=== PATIENT | female | born 1995 | race Caucasian/White ===

== ENCOUNTER 2022-11-15 09:43 | Outpatient (OUT) | payer BC, SELFPAY ==
[2022-11-15 10:35] LABS: Eosinophils Percent Auto 0.7 % (0.9-7.0); Hematocrit 34.8 % (36.0-48.0); Hemoglobin 11.5 g/dL (12.0-16.0); Lymphocytes Absolute Auto 1.7 10^3/uL (1.2-3.8); Lymphocytes Percent Auto 40.7 % (20.5-60.0); Mean Corpuscular Hemoglobin 30.1 pg (26.7-34.0); Mean Corpuscular Volume 91.1 fL (81.0-99.0); Mean Platelet Volume 10.9 fL (9.5-13.5); Monocytes Absolute Auto 0.4 10^3/uL (0.3-0.8); Neutrophils Absolute Auto 1.9 10^3/uL (1.4-6.5); Neutrophils Percent Auto 47.6 % (43.0-75.0); Platelet Count 279 10^3/uL (150-450); Red Blood Count 3.82 10^6/uL (4.20-5.40); Red Cell Distribution Width 12.2 % (11.0-15.0); White Blood Count 4.1 10^3/uL (4.0-11.0)
[2022-11-15 11:38] LABS: Estimated Average Glucose 91 mg/dL; Glycohemoglobin A1C 4.8 % (4.5-6.2)
[2022-11-15 14:49] LABS: Alanine Aminotransferase 39 U/L (14-59); Albumin Level 3.4 g/dL (3.4-5.0); Alkaline Phosphatase 56 U/L (46-116); Anion Gap 16.2; Aspartate Amino Transferase 87 U/L (15-37); BUN Creatinine Ratio 10.5; Bilirubin Total 0.7 mg/dL (0.2-1.0); Calcium 8.4 mg/dL (8.5-10.1); Carbon Dioxide 22.7 mmol/L (21.0-32.0); Chloride 106 mmol/L (98-107); Chol HDL Ratio 3.2; Cholesterol 172 mg/dL (<=200); Estimated GFR (African America >60 (>=60); Estimated GFR (Non-African Ame >60 (>=60); Globulin 3.5 g/dL; Glucose 65 mg/dL (74-106); HDL Cholesterol 53 mg/dL (40-60); LDL Cholesterol Calculated 107.6 mg/dL; Potassium 3.9 mmol/L (3.5-5.1); Sodium 141 mmol/L (136-145); Thyroid Stimulating Hormone 1.145 uIU/mL (0.358-3.740); Total Protein 6.9 g/dL (6.4-8.2); Triglycerides 57 mg/dL (<=150); VLDL CHOLESTEROL 11.4 mg/dL
== END 2022-11-15 09:44 | disposition home or self-care (01) ==
LOC: LAB 09:44
PROVIDERS: PCP Radiology Diagnostic Radiology; Visit Provider Obstetrics & Gynecology
DX: Z00.00 Encounter for general adult medical examination without abnormal findings (principal)
CPT/HCPCS: 36415; 80053; 80061; 83036; 84443; 85025

== ENCOUNTER 2022-11-28 07:29 | Outpatient (OUT) | payer BC, SELFPAY ==
--- NOTE | 2022-11-28 07:32 | VEIN_ITS ---
[address] [address] Patient Name: NATAN ORONA MRN: [id number] date: 1995 Sex: F Assigned Patient Location: Current Patient Location: [facility] Accession/Order Number: [id number] Exam Date: 11/28/2022 07:30 Report Date: 11/28/2022 08:18 At the request of: WILLEM MADDOX Procedure: VC INJ Sclerosing SOLMULT Vein EXAMINATION: VC INJ Sclerosing SOLMULT Vein HISTORY: Pain due to varicose veins of bilateral legs I83.813 COMPARISON: No relevant comparison available. TECHNIQUE: The risks and benefits of the procedure were explained at length to the patient and informed written consent was obtained. Johnie Cai was present and assisted. The procedure was performed under sterile technique. The patient's leg was wrapped with Coban and postprocedural verbal and written instructions provided. SCLEROSANT: 4 cc, 0.5% polidocanol VEIN(S) INJECTED: 26 veins in the left leg VISUALIZATION: Ultrasound was not used to visualize the sclerosant ANESTHESIA: Supercooled air COMPLICATIONS: None VEIN/VC INJ Sclerosing SOLMULT Vein IMPRESSION: Technically successful sclerotherapy as described Electronically authenticated by: WILLEM MADDOX Date: 11/28/2022 08:18
== END 2022-11-28 07:30 | disposition home or self-care (01) ==
PROVIDERS: PCP Radiology Diagnostic Radiology; Visit Provider Radiology Diagnostic Radiology
DX: I83.813 Varicose veins of bilateral lower extremities with pain (principal)
CPT/HCPCS: 36471

== ENCOUNTER 2023-02-21 08:52 | Outpatient (OUT) | payer BC, SELFPAY ==
--- NOTE | 2023-02-21 08:54 | VEIN_ITS ---
VEIN/VC INJ Sclerosing SOLMULT Vein IMPRESSION: Technically successful sclerotherapy as described Electronically authenticated by: WILLEM MADDOX Date: 02/21/2023 10:07
== END 2023-02-21 08:53 | disposition home or self-care (01) ==
LOC: VC 08:52
PROVIDERS: PCP Radiology Diagnostic Radiology; Visit Provider Radiology Diagnostic Radiology
DX: I83.813 Varicose veins of bilateral lower extremities with pain (principal)
CPT/HCPCS: 36471

== ENCOUNTER 2024-02-22 06:44 | Outpatient (OUT) | payer BC, SELFPAY ==
--- OUTSIDE RECORDS SUMMARY | 2024-02-22 06:46 | XMS_ITS | CCD ---
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 Role Phone Ez HERNANDEZ Primary Care Physician [phone] KIERRA, ELZBIETA Consulting Unavailable KIERRA, ELZBIETA Attending Unavailable KIERRA, ELZBIETA Admitting Unavailable REQUEST, NONE LISTED Primary Care Unavaila ble KIERRA, ELZBIETA Consulting Unavailable KIERRA, ELZBIETA Attending Unavailable KIERRA, ELZBIETA Admitting Unavailable REQUEST, NONE LISTED Primary Care Unavaila ble WEST, DR WILLEM Rivas Admitting Unavailable WEST, DR WILLEM Rivas Consulting Unavailable REQUEST, NONE LISTED Primary Care Unavaila ble WEST, DR WILLEM Rivas Attending Unavailable WEST, DR WILLEM Rivas Admitting Unavailable WEST, DR WILLEM Rivas Consulting Unavailable WEST, DR WILLEM Rivas Attending Unavailable REQUEST, NONE LISTED Primary Care Unavaila ble ZIEBER, DR JOVANY Herbert Consulting Unavailable WEST, DR WILLEM Rivas Admitting Unavailable WEST, DR WILLEM Rivas Consulting Unavailable WEST, DR WILLEM Rivas Attending Unavailable REQUEST, NONE LISTED Primary Care Unavaila ble ZIEBER, DR JOVANY Herbert Consulting Unavailable WEST, DR WILLEM Rivas Admitting Unavailable REQUEST, NONE LISTED Primary Care Unavaila ble WEST, DR WILLEM Rivas Attending Unavailable WEST, DR WILLEM Rivas Consulting Unavailable WEST, DR WILLEM Rivas Admitting Unavailable REQUEST, NONE LISTED Primary Care Unavaila ble WEST, DR WILLEM Rivas Consulting Unavailable WEST, DR WILLEM Rivas Attending Unavailable ZIEBER, DR JOVANY Herbert Consulting Unavailable WEST, DR WILLEM Rivas Admitting Unavailable REQUEST, NONE LISTED Primary Care Unavaila ble WEST, DR WILLEM Rivas Consulting Unavailable WEST, DR WILLEM Rivas Attending Unavailable WEST, DR WILLEM Rivas Admitting Unavailable REQUEST, NONE LISTED Primary Care Unavaila ble WEST, DR WILLEM Rivas Attending Unavailable WEST, DR WILLEM Rivas Consulting Unavailable WEST, DR WILLEM Rivas Admitting Unavailable WEST, DR WILLEM Rivas Attending Unavailable REQUEST, NONE LISTED Primary Care Unavaila ble WEST, DR WILLEM Rivas Admitting Unavailable WEST, DR WILLEM Rivas Attending Unavailable REQUEST, DR NONE LISTED Primary Care Unavaila ble WEST, DR WILLEM Rivas Admitting Unavailable WEST, DR WILLEM Rivas Attending Unavailable REQUEST, NONE LISTED Primary Care Unavaila ble WEST, DR WILLEM Rivas Consulting Unavailable WEST, DR WILLEM Rivas Admitting Unavailable REQUEST, DR SAENZ LISTED Primary Care Unavaila ble WEST, DR WILLEM Rivas Attending Unavailable WEST, DR WILLEM Rivas Consulting Unavailable ZIEBER, DR JOVANY Herbert Consulting Unavailable WEST, DR WILLEM Rivas Admitting Unavailable REQUEST, DR SAENZ LISTED Primary Care Unavaila ble WEST, DR WILLEM Rivas Attending Unavailable WEST, DR WILLEM Rivas Consulting Unavailable ZIEBER, DR JOVANY Herbert Consulting Unavailable WEST, DR WILLEM Rivas Admitting Unavailable REQUEST, NONE LISTED Primary Care Unavaila ble WEST, DR WILLEM Rivas Attending Unavailable WEST, DR WILLEM Rivas Consulting Unavailable ZIEBER, DR JOVANY Herbert Consulting Unavailable WEST, DR WILLEM Rivas Admitting Unavailable WEST, DR WILLEM Rivas Attending Unavailable WEST, DR WILLEM Rivas Consulting Unavailable REQUEST, NONE LISTED Primary Care Unavaila ble ZIEBER, DR JOVANY Herbert Consulting Unavailable WEST, DR WILLEM Rivas Admitting Unavailable WEST, DR WILLEM Rivas Consulting Unavailable REQUEST, NONE LISTED Primary Care Unavaila ble WEST, DR WILLEM Rivas Attending Unavailable ZIEBER, DR JOVANY Herbert Consulting Unavailable KAPLE, DR HUI Attending Unavailable KONRAD, DR VILLASENOR Consulting Unavailable REQUEST, DR SAENZ LISTED Primary Care Unavaila ble KAPLE, DR HUI Admitting Unavailable KAPLE, DR HUI Consulting Unavailable WEST, DR WILLEM Rivas Admitting Unavailable WEST, DR WILLEM Rivas Attending Unavailable REQUEST, DR SAENZ LISTED Primary Care Unavaila ble WEST, DR WILLEM Rivas Consulting Unavailable WEST, DR WILLEM Rivas Admitting Unavailable WEST, DR WILLEM Rivas Attending Unavailable WEST, DR WILLEM Rivas Consulting Unavailable REQUEST, DR SAENZ LISTED Primary Care Unavaila ble ZIEBER, DR JOVANY Herbert Consulting Unavailable KAPLE, Ez Shelton Attending Unavailable KAPLE, Ez Shelton Attending Unavailable KAPLE, Ez Shelton Attending Unavailable Konrad, Jordan Whitaker Admitting Unavailable Konrad, Jordan Whitaker Attending Unavailable Medications Current Medications Medication Drug Class(es) Dates Sig (Normalized) Sig (Original) Acidophilus Probiotic Blend (5 sources) Start: 12-18-2018 take 1 capsule by mouth once daily Acidophilus Probiotic Blend 1 cap(s), Oral, Daily, Refill(s) 0 Start Date: 12/18/18 Status: Ordered {7 (Ethinyl Estradiol 0.01 MG Oral Tablet) / 84 (Ethinyl Estradiol 0.03 MG / Levonorgestrel 0.15 MG Oral Tablet) } Pack [Seasonique] (4 sources) Progestin, Estrogen, Progestin-containin g Intrauterine Device Start: 12-18-2018 Seasonique oral tablet 1 tab(s), Oral, Daily, 56 tab(s), Refill(s) 0 Start Date: 12/18/18 Status: Ordered ethinyl estradiol-levonorges trel extended cycle 30 mcg-0.15 mg Tab (1 source) Start: 07-16-2023 ethinyl estradiol-levonor gestrel extended cycle 30 mcg-0.15 mg Tab Refill(s) 0 Start Date: 07/16/23 Status: Ordered FLUoxetine 20 mg oral capsule (1 source) Serotonin Reuptake Inhibitor Start: 01-08-2023 take 1 capsule by mouth once daily Prozac 20 mg Cap 20 mg = 1 cap(s), Oral, Daily, # 90 cap(s), Refills(s) 1, Pharmacy: [facility]/pharmacy #[id number], 164, cm, 01/08/23 10:04:00 EST, Height/Length Dosing, 96.2, kg, 01/08/23 10:04:00 EST, Weight Dosing Start Date: 01/08/23 Status: Ordered hydrOXYzine pamoate 25 mg oral capsule (5 sources) Antihistamine Start: 07-16-2023 take 1 capsule by mouth four times daily as needed for anxiety Vistaril 25 mg Cap 25 mg = 1 cap(s), Oral, QID, PRN for anxiety, # 40 cap(s), Refills(s) 5, Pharmacy: [facility]/pharmacy #[id number], 164, cm, 07/16/23 15:05:00 EDT, Height/Length Dosing, 98, kg, 07/16/23 15:05:00 EDT, Weight Dosing Start Date: 07/16/23 Status: Ordered Start: 08-29-2022 take 1 capsule by [facility] four times daily as needed for anxiety Vistaril 25 mg Cap 25 mg = 1 cap(s), Oral, QID, PRN for anxiety, # 40 cap(s), Refills(s) 5, Pharmacy: [facility]/pharmacy #[id number], 164, cm, 01/30/22 13:24:00 EST, Height/Length Dosing, 93.5, kg, 01/30/22 13:24:00 EST, Weight Dosing Start Date: 08/29/22 Status: Ordered Start: 07-26-2021 take 1 capsule by mo ut four times daily as needed for anxiety Vistaril 25 mg Cap 25 mg = 1 cap(s), Oral, QID, PRN for anxiety, # 40 cap(s), Refills(s) 5, Pharmacy: [facility]/pharmacy #[id number], 164, cm, 07/26/21 8:02:00 EDT, Height/Length Dosing, 92.1, kg, 07/26/21 8:02:00 EDT, Weight Dosing Start Date: 07/26/21 Status: Ordered Multi Vitamins oral tablet (5 sources) Start: 12-18-2018 take 1 tablet by mouth once daily Multi Vitamins oral tablet 1 tab(s), Oral, Daily, Refill(s) 0 Start Date: 12/18/18 Status: Ordered traZODone hydrochloride 50 mg oral tablet (1 source) Serotonin Reuptake Inhibitor Start: 07-26-2021 take 1 tablet by mouth once daily at bedtime traZODONE 50 mg Tab 50 mg = 1 tab(s), Oral, Once a day (at bedtime), # 30 tab(s), Refills(s) 5, Pharmacy: [facility]/pharmacy #[id number], 164, cm, 07/26/21 8:02:00 EDT, Height/Length Dosing, 92.1, kg, 07/26/21 8:02:00 EDT, Weight Dosing Start Date: 07/26/21 Status: Ordered Problems Active Problems Problem Classification Problem Date Documented Da te Episodic/Chronic Allergic reactions (5 sources) Contact dermatitis 05-04-2019 Episodic Anxiety disorders (20 sources) Generalized anxiety disorder; Translations: [Generalized anxiety disorder] Onset: 2 Chronic Calculus of urinary tract (7 sources) History of calculus of kidney; Translations: [Personal history of urinary calculi] Onset: 2 Episodic Diabetes mellitus without complication (5 sources) Ketonuria 07-26-2021 Episodic Genitourinary symptoms and ill-defined conditions (5 sources) Urinary complication 07-26-2021 Episodic Headache; including migraine (5 sources) Headache 05-04-2019 Episodic Miscellaneous mental health disorders (3 sources) Insomnia; Translations: [Other insomnia not due to a substance or known physiological condition] Onset: 2 Chronic Mood disorders (4 sources) Mild major depression, single episode; Translations: [Major depressive disorder, single episode, mild] Onset: 3 Chronic Neoplasms of unspecified nature or uncertain behavior (5 sources) Neoplastic disease of uncertain behavior 07-26-2021 Episodic Noninfectious gastroenteritis (5 sources) Gastroenteritis 05-04-2019 Episodic Other and unspecified benign neoplasm (5 sources) Lipoma of buttock 07-26-2021 Episodic Other nervous system disorders (13 sources) Benign intracranial hypertension; Translations: [Benign intracranial hypertension] Onset: 2 Chronic Other nervous system disorders (1 source) 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; Translations: [Personal history of other diseases of the nervous system and sense organs] Onset: 2 Episodic Other nervous system disorders (4 sources) H/O: visual disturbance 01-30-2022 Episodic Other nutritional; endocrine; and metabolic disorders (2 sources) Obese class I; Translations: [Body mass index (BMI) 34.0-34.9, adult] Onset: 2 Chronic Other nutritional; endocrine; and metabolic disorders (8 sources) Obesity; Translations: [Other obesity] Onset: 2 Chronic Other nutritional; endocrine; and metabolic disorders (3 sources) Obese class II; Translations: [Body mass index (BMI) 35.0-35.9, adult] Onset: 3 Chronic Other nutritional; endocrine; and metabolic disorders (1 source) Morbid obesity; Translations: [Morbid (severe) obesity due to excess calories] Onset: 4 Chronic Other skin disorders (5 sources) H/O: skin disorder 07-26-2021 Episodic Other skin disorders (5 sources) Skin lesion 07-26-2021 Episodic Other upper respiratory infections (5 sources) Sinusitis 05-04-2019 Chronic Phlebitis; thrombophlebitis and thromboembolism (9 sources) Phlebitis and thrombophlebitis of superficial vessels of left lower extremity; Translations: [Phlebitis and thrombophlebitis of superficial vessels of right lower extremity] Onset: 3 Episodic Residual codes; unclassified (5 sources) Insomnia 05-24-2022 Episodic Unclassified (10 sources) Patient encounter status 10-28-2019 Unclassified (3 sources) CONTACT W/AND (SUSP) EXPOS COVID-19; Translations: [CONTACT W/AND (SUSP) EXPOS COVID-19] Onset: 2 Varicose veins of lower extremity (4 sources) Varicose veins of bilateral lower extremities with pain; Translations: [VARICOSE VNS DYLON LOW EXTREM W/PAIN] Onset: 3 Episodic Viral infection (1 source) COVID-19; Translations: [COVID-19] Onset: 2 Past or Other Problems Problem Classification Problem Date Documented Da te Episodic/Chronic Unclassified (1 source) CONTACT W/AND (SUSP) EXPOS COVID-19; Translations: [CONTACT W/AND (SUSP) EXPOS COVID-19] Onset: 10-09-2021 Results Test Name Value Interpretation Reference Range Facility Ambulatory Visit Summaryon 0 07-16-2023 Ambulatory Visit Summary JO ORONAISIAH Carlson :1995 Visit Date:07/16/2023 Ambulatory Visit Instructions Your Diagnosis Mild major depression Pseudotumor cerebri syndrome Situational anxiety BMI 36.0-36.9,adult, Body mass index [BMI] 36.0-36.9, adult Class 2 severe obesity due to excess calories with serious comorbidity and body mass index (BMI) of 36.0 to 36.9 in adult Situational insomnia Your Care Team Attending Physician - Ez HERNANDEZ DO, FAAFP Primary Care Physician - Ez HERNANDEZ DO, FAAFP This Is Your Medications List hydrOXYzine (Vistaril 25 mg Cap) Contact prescribing physician if questions or concerns ethinyl estradiol-levonorgestrel (ethinyl estradiol-levonorgestrel extended cycle 30 mcg-0.15 mg Tab) lactobacillus acidophilus (Acidophilus Probiotic Blend) multivitamin (Multi Vitamins oral tablet) Procedures Performed [place] tooth (2009). Discharge Vitals Temperature (Oral) 36.7 ?C Heart Rate (Peripheral) 87 Respiratory Rate 18 Blood Pressure 118/68 Height 164 cm Height 65 in Weight 98.0 kg Weight 215.6 lb BMI 36.44 Medications What How Much When Why Instructions Unchanged hydrOXYzine (Vistaril 25 mg Cap) 1 Capsules By Mouth 4 times a day as needed for for anxiety Situational anxiety Pickup at [facility]/pharmacy #[id number] Unchanged ethinyl estradiol-levonorgestrel (ethinyl estradiol-levonorgestrel extended cycle 30 mcg-0.15 mg Tab) Contact prescribing physician if questions or concerns Unchanged lactobacillus acidophilus (Acidophilus Probiotic Blend) 1 Capsules By Mouth Every day Contact prescribing physician if questions or concerns Unchanged multivitamin (Multi Vitamins oral tablet) 1 Tablets By Mouth Every day Contact prescribing physician if questions or concerns Pharmacy Information [facility]/pharmacy #[id number]: [address] [place], [place] [id number] [phone] Allergies No Known Allergies Problems Ongoing - Any problem that you are currently receiving treatment for. Encounter for well adult exam with abnormal findings H/O diplopia History of kidney stones Mild major depression Pseudotumor cerebri syndrome Situational anxiety Situational insomnia Well adult exam Historical - Any problem that you are no longer receiving treatment for. Anxiety Class 1 obesity with body mass index (BMI) of 33.0 to 33.9 in adult Contact dermatitis Gastroenteritis Headache History of lichen planus Ketonuria Lipoma of buttock Neoplasm, uncertain whether benign or malignant Panic attack Pseudotumor cerebri Sinusitis Skin lesion of back Urinary complication Patient Survey You may receive a survey via text or e-mail asking about your office visit. Please share your experience with us by completing your survey. We appreciate your feedback and thank you for choosing us for your care. [facility] Family Medicine Office/Clini c Noteon 07-16-2023 Family Medicine Office/Clinic Note Chief Complaint Patient here for 6 month f/u on anxiety/depression History of Present Illness Here for follow up Have you had any ER visits or any hospitalizations since last visit? no Are you compliant with your medications and no difficulty affording your medications? yes Do you have side effects from the medication? no Are you compliant with your diet? yes Do you exercise? yes Do you have any of the following symptoms? Chest pain? no Palpitations? no YEAGER/SOB? no Orthopnea? no PND? no Edema? no Have you had any recent cardiopulmonary testing? 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 Patient released from Dr. Herring regarding pseudotumor cerebri approximately 9 years ago. She was instructed to contact her should she have any visual scotomas and or diplopia. Congressional Representative has turned her over to director of cath lab who does yearly inspection of the retina and every 2 year photographs of retina and peripheral visual leblanc. Patient reports no problems since 2 years after she was treated starting 2012. Patient denies any depression of any type, anxiety and necessitates Vistaril approximately 1 p.o. per week. 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 Patient performs approximately 10 MRIs per day with another diploma pharmacy technician. Review of Systems PHQ Score Initial Depression Screen Score: 0 SCORE ROS - Provider Constitutional: no fever, no chills, no sweats, no weakness. Skin: no Jaundice, no rash, no lesions, no petechiae. ENMT: no ear pain, no sore throat, no congestion, no hoarseness. Respiratory: no shortness of breath, no cough, no orthopnea, no wheezing. Cardiovascular: no chest pain, no palpitations, no edema. Gastrointestinal: no nausea, no vomiting, no diarrhea, no GI bleeding.no constipationnoheartburn Genitourinary: no dysuria, no hematuria, no discharge, no pain.nofreq/urgency Musculoskeletal: no back pain, no trauma.nojoint pain Neurologic: no headache, no dizziness, no numbness, no weakness. Psychiatric: no sleeping problems, no irritability, no mood swings/depression. Heme/Lymph: no bleeding tendency, no bruising tendency, no petechiae, no swollen lymph nodes no Allergy/Imunology no seasonal allergies, no food allergies, no recurrent infections, no impaired immunity. Additional ROS info: Except as noted in the above Review of Systems and in the History of Present Illness all other systems have been reviewed and are negative or noncontributory. Physical Exam Vitals & Measurements T: 36.7 ?C(Oral) HR: 87(Peripheral) RR: 18 BP: 118/68 SpO2: 98% HT: 65 in HT: 164 cm WT: 98.0 kg WT: 215.6 lb BMI: 36.44 General: Well developed, well nourished, in no acute distress Mouth: Mucous membranes moist. Normal oropharynx, and posterior pharynx without lesions or exudates. Tongue normal Neck: Neck supple. No masses or palpable cervical nodes. Trachea midline. Thyroid without nodules, masses, tenderness, or enlargement Lungs: Normal respiratory effort and clear to auscultation Cardio: Regular rate and rhythm, normal S1 and S2, no murmur, no rub Abdomen: Soft, non-distended, non-tender. no G/R/S/Masses Musculoskeletal: No deformity or scoliosis noted. Normal range of motion. Joints normal. No erythema, edema, effusion, or ecchymosis Extremity: No clubbing, cyanosis, edema, or deformity, with normal ROM in both upper and lower bilateral extremities Neurologic: Grossly normal Skin: No rashes, ulcerations, or suspicious lesions Mental Status: Alert and oriented x3. Normal mood and affect Assessment/Plan 1. Mild major depression (F32.0: Major depressive disorder, single episode, mild) Good control with diet and exercise, never took prozac and doing well. Ordered: fluoxetine, 20 mg = 1 cap(s), Oral, Daily, # 90 cap(s), Refills(s) 1, [id number] 164, cm, 01/08/23 10:04:00 EST, Height/Length Dosing, 96.2, kg, 01/08/23 10:04:00 EST, Weight Dosing 2. Pseudotumor cerebri syndrome (G93.2: Benign intracranial hypertension) Dr Herring and Dr Mari following with spinal tap 2012, took 1000mg Diamox then and weened off and resolved 2-3 years later. Yearly eye exam per Dr Paris , periperal visual leblanc and retinal photos q [address] Herring released unless develops diploplia or scotomas. 3. Situational anxiety (F41.8: Other specified anxiety disorders) Vistaril 25 mg p.o. 4 times daily as needed anxiety. 1 tab per week Ordered: fluoxetine, 20 mg = 1 cap(s), Oral, Daily, # 90 cap(s), Refills(s) 1, Pharmacy: [facility]/pharmacy #[id number], 164, cm, 01/08/23 10:04:00 EST, Height/Length Dosing, 96.2, kg, 01/08/23 10:04:00 EST, Weight Dosing hydrOXYzine, 25 mg = 1 cap(s), Oral, QID, PRN for anxiety, # 40 cap(s), Refills(s) 5, Pharmacy: [facility]/pharmacy #[id number], 164, cm, 07/16/23 15:05:00 EDT, Height/Length Dosing, 98, kg, 07/16/23 15:05:00 EDT, Weight Dosing 4. BMI 36.0-36.9,adult, (Z68.36: Body mass index [BMI] 36.0-36.9, adult)Body mass index [BMI] 36.0-36.9, adult The standard range for ages 18 (more content not included)... Normal [facility] Comment on above: Result Comment: Elec tronically Signed By: Ez HERNANDEZ DO, FAAFP\.br\Date and Time Signed: 07/16/23 16:05 EDT Patient Educationon 07-16-19 Patient Education Managing Anxiety, Ad ult After being diagnosed with anxiety, you may be relieved to know why you have felt or behaved a certain way. You may also feel overwhelmed about the treatment ahead and what it will mean for your life. With care and support, you can manage this condition. How to manage lifestyle changes Managing stress and anxiety Stress is your body's reaction to life changes and events, both good and bad. Most stress will last just a few hours, but stress can be ongoing and can lead to more than just stress. Although stress can play a major role in anxiety, it is not the same as anxiety. Stress is usually caused by something external, such as a deadline, test, or competition. Stress normally passes after the triggering event has ended. Anxiety is caused by something internal, such as imagining a terrible outcome or worrying that something will go wrong that will devastate you. Anxiety often does not go away even after the triggering event is over, and it can become long-term (chronic) worry. It is important to understand the differences between stress and anxiety and to manage your stress effectively so that it does not lead to an anxious response. Talk with your health care provider or a counselor to learn more about reducing anxiety and stress. He or she may suggest tension reduction techniques, such as: ? Music therapy. Spend time creating or listening to music that you enjoy and that inspires you. ? Mindfulness-based meditation. Practice being aware of your normal breaths while not trying to control your breathing. It can be done while sitting or walking. ? Centering prayer. This involves focusing on a word, phrase, or sacred image that means something to you and brings you peace. ? Deep breathing. To do this, expand your stomach and inhale slowly through your nose. Hold your breath for 3?5 seconds. Then exhale slowly, letting your stomach muscles relax. ? Self-talk. Learn to notice and identify thought patterns that lead to anxiety reactions and change those patterns to thoughts that feel peaceful. ? Muscle relaxation. Taking time to tense muscles and then relax them. Choose a tension reduction technique that fits your lifestyle and personality. These techniques take time and practice. Set aside 5?15 minutes a day to do them. Therapists can offer counseling and training in these techniques. The training to help with anxiety may be covered by some insurance plans. Other things you can do to manage stress and anxiety include: ? Keeping a stress diary. This can help you learn what triggers your reaction and then learn ways to manage your response. ? Thinking about how you react to certain situations. You may not be able to control everything, but you can control your response. ? Making time for activities that help you relax and not feeling guilty about spending your time in this way. ? Doing visual imagery. This involves imagining or creating mental pictures to help you relax. ? Practicing yoga. Through yoga poses, you can lower tension and promote relaxation. Medicines Medicines can help ease symptoms. Medicines for anxiety include: ? Antidepressant medicines. These are usually prescribed for long-term daily control. ? Anti-anxiety medicines. These may be added in severe cases, especially when panic attacks occur. Medicines will be prescribed by a health care provider. When used together, medicines, psychotherapy, and tension reduction techniques may be the most effective treatment. Relationships Relationships can play a big part in helping you recover. Try to spend more time connecting with trusted friends and family members. ? Consider going to couples counseling if you have a partner, taking family education classes, or going to family therapy. ? Therapy can help you and others better understand your condition. How to recognize changes in your anxiety Everyone responds differently to treatment for anxiety. Recovery from anxiety happens when symptoms decrease and stop interfering with your daily activities at home or work. This may mean that you will start to: ? Have better concentration and focus. Worry will interfere less in your daily thinking. ? Sleep better. ? Be less irritable. ? Have more energy. ? Have improved memory. It is also important to recognize when your condition is getting worse. Contact your health care provider if your symptoms interfere with home or work and you feel like your condition is not improving. Follow these instructions at home: Activity ? Exercise. Adults should do the following: ? Exercise for at least 150 minutes each week. The exercise should increase your heart rate and make you sweat (moderate-intensity exercise). ? Strengthening exercises at least twice a week. ? Get the right amount and quality of sleep. Most adults need 7?9 hours of sleep each night. Lifestyle ? Eat a healthy diet that include (more content not included)... Normal [facility] Ambulatory Visit Summaryon 1 03-10-2022 Ambulatory Visit Summary NATAN ORONA :1995 Visit Date:01/08/2023 Ambulatory Visit Instructions Your Diagnosis Situational anxiety Mild major depression Well adult exam BMI 35.0-35.9,adult Other obesity Your Care Team Attending Physician - Ez HERNANDEZ DO, FAAFP Primary Care Physician - Ez HERNANDEZ DO, FAAFP This Is Your Medications List fluoxetine (Prozac 20 mg Cap) Contact prescribing physician if questions or concerns ethinyl estradiol-levonorgestrel (Seasonique oral tablet) hydrOXYzine (Vistaril 25 mg Cap) lactobacillus acidophilus (Acidophilus Probiotic Blend) multivitamin (Multi Vitamins oral tablet) Procedures Performed [place] tooth (2009). Discharge Vitals Temperature (Oral) 36.6 ?C Heart Rate (Peripheral) 83 Respiratory Rate 18 Blood Pressure 114/70 Height 164 cm Height 65 in Weight 96.2 kg Weight 211.64 lb BMI 35.77 What to do next You Need to Schedule the Following Appointments Follow Up with Ez HERNANDEZ DO, FAAFP, FAM, PED When: In 6 months Where: [address], [facility], [place] [address]- Medications What How Much When Why Instructions New fluoxetine (Prozac 20 mg Cap) 1 Capsules By Mouth Every day Mild major depression Situational anxiety Refills: 1 Pickup at [facility]/pharmacy #[id number] Unchanged ethinyl estradiol-levonorgestrel (Seasonique oral tablet) 1 Tablets By Mouth Every day Contact prescribing physician if questions or concerns Unchanged hydrOXYzine (Vistaril 25 mg Cap) 1 Capsules By Mouth 4 times a day as needed for for anxiety Situational anxiety Contact prescribing physician if questions or concerns Unchanged lactobacillus acidophilus (Acidophilus Probiotic Blend) 1 Capsules By Mouth Every day Contact prescribing physician if questions or concerns Unchanged multivitamin (Multi Vitamins oral tablet) 1 Tablets By Mouth Every day Contact prescribing physician if questions or concerns Pharmacy Information [facility]/pharmacy #[id number]: [address] [place] [id number] [phone] Allergies No Known Allergies Problems Ongoing - Any problem that you are currently receiving treatment for. Encounter for well adult exam with abnormal findings H/O diplopia History of kidney stones Mild major depression Pseudotumor cerebri syndrome Situational anxiety Situational insomnia Well adult exam Historical - Any problem that you are no longer receiving treatment for. Anxiety Class 1 obesity with body mass index (BMI) of 33.0 to 33.9 in adult Contact dermatitis Gastroenteritis Headache History of lichen planus Ketonuria Lipoma of buttock Neoplasm, uncertain whether benign or malignant Panic attack Pseudotumor cerebri Sinusitis Skin lesion of back Urinary complication Patient Survey You may receive a survey via text or e-mail asking about your office visit. Please share your experience with us by completing your survey. We appreciate your feedback and thank you for choosing us for your care. Education Materials Major Depressive Disorder, Adult Major depressive disorder is a mental health condition. This disorder affects feelings. It can also affect the body. Symptoms of this condition last most of the day, almost every day, for 2 weeks. This disorder can affect: ? Relationships. ? Daily activities, such as work and school. ? Activities that you normally like to do. What are the causes? The cause of this condition is not known. The disorder is likely caused by a mix of things, including: ? Your personality, such as being a shy person. ? Your behavior, or how you act toward others. ? Your thoughts and feelings. ? Too much alcohol or drugs. ? How you react to stress. ? Health and mental problems that you have had for a long time. ? Things that hurt you in the past (trauma). ? Big changes in your life, such as divorce. What increases the risk? The following factors may make you more likely to develop this condition: ? Having family members with depression. ? Being a woman. ? Problems in the family. ? Low levels of some brain chemicals. ? Things that caused you pain as a child, especially if you lost a parent or were abused. ? A lot of stress in your life, such as from: ? Living without basic needs of life, such as food and custodial. ? Being treated poorly because of race, sex, or jew (discrimination). ? Health and mental problems that you have had for a long time. What are the signs or symptoms? The main symptoms of this condition are: ? Being sad all the time. ? Being grouchy all the time. ? Loss of interest in things and activities. Other symptoms include: ? Sleeping too much or too little. ? Eating too much or too little. ? Gaining or losing weight, without knowing why. ? Feeling tired or having low energy. ? Being restless and weak. ? Feeling hopeless, worthless, o (more content not included)... Normal [facility] Office/Presley Gomeson 01-08-2023 Family Medicine Office/Clinic Note Chief Complaint Wellness Visit History of Present Illness Here for follow up Have you had any ER visits or any hospitalizations since last visit? no Are you compliant with your medications and no difficulty affording your medications? yes Do you have side effects from the medication? no Are you compliant with your diet? yes Do you exercise? yes Do you have any of the following symptoms? Chest pain? no Palpitations? no YEAGER/SOB? no Orthopnea? no PND? no Edema? no Have you had any recent cardiopulmonary testing? no Mild intermittent depression with out S/H ideations. Taking more Vistaril than I was, lost dog, hard. Review of Systems PHQ Score Initial Depression Screen Score: 0 ROS - Provider Constitutional: no fever, no chills, no sweats, no weakness. Skin: no Jaundice, no rash, no lesions, no petechiae. ENMT: no ear pain, no sore throat, no congestion, no hoarseness. Respiratory: no shortness of breath, no cough, no orthopnea, no wheezing. Cardiovascular: no chest pain, no palpitations, no edema. Gastrointestinal: no nausea, no vomiting, no diarrhea, no GI bleeding.no constipationnoheartburn Genitourinary: no dysuria, no hematuria, no discharge, no pain.nofreq/urgency Musculoskeletal: no back pain, no trauma.nojoint pain Neurologic: no headache, no dizziness, no numbness, no weakness. Psychiatric: no sleeping problems, no irritability, no mood swings/depression. Heme/Lymph: no bleeding tendency, no bruising tendency, no petechiae, no swollen lymph nodes no Allergy/Imunology no seasonal allergies, no food allergies, no recurrent infections, no impaired immunity. Additional ROS info: Except as noted in the above Review of Systems and in the History of Present Illness all other systems have been reviewed and are negative or noncontributory. Physical Exam Vitals & Measurements T: 36.6 ?C(Oral) HR: 83(Peripheral) RR: 18 BP: 114/70 SpO2: 98% HT: 65 in HT: 164 cm WT: 96.2 kg WT: 211.64 lb BMI: 35.77 General: Well developed, well nourished, in no acute distress Mouth: Mucous membranes moist. Normal oropharynx, and posterior pharynx without lesions or exudates. Tongue normal Neck: Neck supple. No masses or palpable cervical nodes. Trachea midline. Thyroid without nodules, masses, tenderness, or enlargement Lungs: Normal respiratory effort and clear to auscultation Cardio: Regular rate and rhythm, normal S1 and S2, no murmur, no rub Abdomen: Soft, non-distended, non-tender. no G/R/S/Masses Musculoskeletal: No deformity or scoliosis noted. Normal range of motion. Joints normal. No erythema, edema, effusion, or ecchymosis Extremity: No clubbing, cyanosis, edema, or deformity, with normal ROM in both upper and lower bilateral extremities Neurologic: Grossly normal Skin: No rashes, ulcerations, or suspicious lesions Mental Status: Alert and oriented x3. Normal mood and affect Assessment/Plan 1. Situational anxiety (F41.8: Other specified anxiety disorders) Dog really helped: Vistaril helpful: Add Prozac, diet and exercise Ordered: fluoxetine, 20 mg = 1 cap(s), Oral, Daily, # 90 cap(s), Refills(s) 1, Pharmacy: [facility]/pharmacy #[id number], 164, cm, 01/08/23 10:04:00 EST, Height/Length Dosing, 96.2, kg, 01/08/23 10:04:00 EST, Weight Dosing 2. Mild major depression (F32.0: Major depressive disorder, single episode, mild) Prozac, per #1 Ordered: fluoxetine, 20 mg = 1 cap(s), Oral, Daily, # 90 cap(s), Refills(s) 1, Pharmacy: [facility]/pharmacy #[id number], 164, cm, 01/08/23 10:04:00 EST, Height/Length Dosing, 96.2, kg, 01/08/23 10:04:00 EST, Weight Dosing 3. Well adult exam (Z00.00: Encounter for general adult medical examination without abnormal findings) lab reviewed 4. BMI 35.0-35.9,adult (Z68.35: Body mass index [BMI] 35.0-35.9, adult) The standard range for ages 18 and older is >=18.5 and < 25 kg/m2. Your BMI today was above this range, this falls in the overweight to obese category and there are medical benefits to weight loss. We can offer counselling, referral, and/or medical support in addressing this problem. Your BMI and weight management will be followed at subsequent visits. 5. Other obesity (E66.8: Other obesity) diet and exercise. Total time spent preparing the chart, conducting of the encounter with the patient and family and time spent documenting, reviewing, and ordering tests was 30 minutes. Follow-up With When Contact Information Ez HERNANDEZ DO, FAAFP, NICK, PED In 6 months [address] [facility], [place] [address]- Additional Instructions: Patient Education Major Depressive Disorder, Adult, [id number] Problem List/Past Medical History Ongoing Encounter for well adult exam with abnormal findings H/O diplopia History of kidney stones Mild major depression Pseudotumor cerebri syndrome Situational anxiety Situational insomnia Well adult exam Historical Anxiety Class 1 obesity with body mass index (BMI) of 33.0 to 33.9 in adult C (more content not included)... Normal [facility] Comment on above: Result Comment: Elec tronically Signed By: Ez HERNANDEZ DO, FAAFP\.br\Date and Time Signed: 01/08/23 10:26 EST Patient Educationon 01-09-20 Patient Education Mental and Behaviora Health Major Depressive Disorder, Adult Major depressive disorder is a mental health condition. This disorder affects feelings. It can also affect the body. Symptoms of this condition last most of the day, almost every day, for 2 weeks. This disorder can affect: ? Relationships. ? Daily activities, such as work and school. ? Activities that you normally like to do. What are the causes? The cause of this condition is not known. The disorder is likely caused by a mix of things, including: ? Your personality, such as being a shy person. ? Your behavior, or how you act toward others. ? Your thoughts and feelings. ? Too much alcohol or drugs. ? How you react to stress. ? Health and mental problems that you have had for a long time. ? Things that hurt you in the past (trauma). ? Big changes in your life, such as divorce. What increases the risk? The following factors may make you more likely to develop this condition: ? Having family members with depression. ? Being a woman. ? Problems in the family. ? Low levels of some brain chemicals. ? Things that caused you pain as a child, especially if you lost a parent or were abused. ? A lot of stress in your life, such as from: ? Living without basic needs of life, such as food and custodial. ? Being treated poorly because of race, sex, or jew (discrimination). ? Health and mental problems that you have had for a long time. What are the signs or symptoms? The main symptoms of this condition are: ? Being sad all the time. ? Being grouchy all the time. ? Loss of interest in things and activities. Other symptoms include: ? Sleeping too much or too little. ? Eating too much or too little. ? Gaining or losing weight, without knowing why. ? Feeling tired or having low energy. ? Being restless and weak. ? Feeling hopeless, worthless, or guilty. ? Trouble thinking clearly or making decisions. ? Thoughts of hurting yourself or others, or thoughts of ending your life. ? Spending a lot of time alone. ? Inability to complete common tasks of daily life. If you have very bad MDD, you may: ? Believe things that are not true. ? Hear, see, taste, or feel things that are not there. ? Have mild depression that lasts for at least 2 years. ? Feel very sad and hopeless. ? Have trouble speaking or moving. How is this treated? This condition may be treated with: ? Talk therapy. This teaches you to know bad thoughts, feelings, and actions and how to change them. ? This can also help you to communicate with others. ? This can be done with members of your family. ? Medicines. These can be used to treat worry (anxiety), depression, or low levels of chemicals in the brain. ? Lifestyle changes. You may need to: ? Limit alcohol use. ? Limit drug use. ? Get regular exercise. ? Get plenty of sleep. ? Make healthy eating choices. ? Spend more time outdoors. ? Brain stimulation. This treatment excites the brain. This is done when symptoms are very bad or have not gotten better with other treatments. Follow these instructions at home: Activity ? Get regular exercise as told. ? Spend time outdoors as told. ? Make time to do the things you enjoy. ? Find ways to deal with stress. Try to: ? Meditate. ? Do deep breathing. ? Spend time in nature. ? Keep a journal. ? Return to your normal activities as told by your doctor. Ask your doctor what activities are safe for you. Alcohol and drug use ? If you drink alcohol: ? Limit how much you use to: ? 0?1 drink a day for women. ? 0?2 drinks a day for men. ? Be aware of how much alcohol is in your drink. In the [place] one drink equals one 12 oz bottle of beer (355 mL), one 5 oz glass of wine (148 mL), or one 1? oz glass of hard liquor (44 mL). ? Talk to your doctor about: ? Alcohol use. Alcohol can affect some medicines. ? Any drug use. General instructions ? Take xxdo-gum-wikawsm and prescription medicines and herbal preparations only as told by your doctor. ? Eat a healthy diet. ? Get a lot of sleep. ? Think about joining a support group. Your doctor may be able to suggest one. ? Keep all follow-up visits as told by your doctor. This is important. Where to find more information: ? National [place] on Mental Illness: www.joaquín.org ? [place] National [place] of Mental Health: www.nimh.nih.gov ? [place] [employer]: www.psychiatry.org/patient s-families/ Contact a doctor if: ? Your symptoms get worse. ? You get new symptoms. Get help right away if: ? You hurt yourself. ? You have serious thoughts about hurting yourself or others. ? You see, hear, taste, smell, or feel things that are not there. If you ever feel like you may hurt yourself or others, or have thoughts about taking your own life, get help right away. Go to your nearest emergency department or: ? Call your local emergency services (911 i (more content not included)... Normal [facility] PAP [id number] 10-23-2022 Cytology report Cyto stain Doc (Cvx/Vag) Note Invalid Interpretation Code [facility] Comment on above: Result Comment: TEST S RESULT FLAG UNITS REF RANGE LAB Clinician Provided Cytology Information Source.............Endocervix No. of containers..01 ThinPrep Vial DIAGNOSIS: 01 NEGATIVE FOR INTRAEPITHELIAL LESION OR MALIGNANCY. Specimen adequacy: 01 Satisfactory for evaluation. Endocervical and/or squamous metaplastic cells (endocervical component) are present. Performed by: Evita Morris, Teleprinter Installer (ASCP) . 01 Note: Note 01 The Pap smear is a screening test designed to aid in the detection of premalignant and malignant conditions of the uterine cervix. It is not a diagnostic procedure and should not be used as the sole means of detecting cervical cancer. Both false-positive and false-negative reports do occur. Test Methodology: Note 01 This liquid based ThinPrep(R) pap test was screened with the use of an image guided system. . 01 The HPV DNA reflex criteria were not met with this specimen result therefore, no HPV testing was performed. FLAG LEGEND: L-Low Normal,H-High Normal,LL-Alert Low,HH-Alert High <-Panic Low,>-Panic High,A-Abnormal,AA-Critical Abnormal Performed at: [address] [facility] [address] [place] [id number] Hortensia Humphries MD, Performed at: [facility] [address] [place], [place] [id number] MD Yandel Bazan Performed By: #### 3 [id number] #### [facility] [address] [place] [address] PAP [id number] 10-17-2022 Collection Technique BRUSH-SPATULA Normal [facility] Comment on above: Performed By: #### 3 [id number] #### [facility] [address] [place] [address] Gynecological Body Site ENDOCERVIX Normal [facility] Comment on above: Performed By: #### 3 [id number] #### [facility] [address] [place] [address] Physician Orderon 10-17-2022 Physician Order [id number] Normal [facility] VC INJ SCL TAI CABLE PLACER VEINSon 0 07-12-2022 VC INJ SCL TAI CABLE PLACER VEINS Patient: NATAN ORONA Exam Date: 07/12/2022 : 1995 Gender:F Ordering : DR WILLEM MADDOX M.D. Admission #: [id number] Family : Order #: [id number] CLICK HERE TO VIEW EXAM RADIOLOGY REPORT PROCEDURE: VEIN CENTER INJECTION SCLEROSING SOLUTION MULTIPLE VEINS SAME COMPARISON: None. INDICATIONS: Pain co-occurrent and due to varicose veins of bilateral legs I83.813 PROCEDURE NOTE: The risks and benefits of the procedure were explained at length to the patient and informed written consent was obtained. Johnie Cai was present and assisted. The procedure was performed under sterile technique. The patient's leg was wrapped with Coban and postprocedural verbal and written instructions provided. SCLEROSANT: 4 cc, 0.5% polidocanol VEIN(S) INJECTED: 18 veins in the left leg VISUALIZATION: Ultrasound was not used to visualize the sclerosant ANESTHESIA Supercooled air COMPLICATIONS: None CONCLUSION: 1. Technically successful sclerotherapy as described Dictated by: Willem Maddox MD on 07/12/2022 at 09:34 Approved by: Willem Maddox MD on 07/12/2022 at 09:55 Normal [facility] VC CONSULT FOLLOWUPon 2022 VC CONSULT FOLLOWUP Patient: LENCHO ORONA Exam Date: 07/11/2022 : 1995 Gender:F Ordering : DR WILLEM MADDOX M.D. Admission #: [id number] Family : Order #: [id number] CLICK HERE TO VIEW EXAM RADIOLOGY REPORT PROCEDURE: VEIN CENTER CONSULTATION FOLLOWUP VEIN CENTER - OFFICE VISIT FOLLOW UP COMPARISON: VC CONSULT FOLLOWUP, 07/04/2022. PROGRESS NOTES: The patient reports improvement in leg symptoms. There has been interval reduction in varicosities. The patient has followed our recommendations to walk 20-30 minutes once or twice per day since the procedure. Physical exam demonstrates decrease in superficial varicosities of the legs bilaterally. Persistent spider veins are identified along the legs bilaterally. Review of the ultrasound performed the same day demonstrates occlusive thrombus extending throughout the treated vein, see separate report, consistent with a successful ablation. No thrombus extending into or beyond the saphenofemoral junction. The patient expressed a desire to proceed with treatment of spider veins. The patient was informed that treatment was a process and would require approximately 2 procedures/sessions. IMPRESSION: 1. Successful ablation of the treated branch saphenous varicosities 2. Persistent spider veins bilaterally PLAN: Bilateral sclerotherapy. Nurse notes, history and physical were reviewed and confirmed, see attached forms. The nurse was present throughout the physical exam and consultation Dictated by: Jovany Shay M.D. on 07/11/2022 at 08:14 Approved by: Jovany Shay M.D. on 07/11/2022 at 08:22 Normal [facility] VC EXT VENOUS LT LIMITEDon 0 07-11-2022 VC EXT VENOUS LT LIMITED Patient: NATAN ORONA Exam Date: 07/11/2022 : 1995 Gender:F Ordering : DR WILLEM MADDOX M.D. Admission #: [id number] Family : Order #: [id number] CLICK HERE TO VIEW EXAM RADIOLOGY REPORT PROCEDURE: VEIN CENTER EXTREMITY VENOUS LEFT LIMITED COMPARISON: VC EXT VENOUS LT LIMITED, 06/27/2022. INDICATIONS: Phlebitis of superficial veins of lower extremity I80.02 TECHNIQUE: Lower extremity walsh scale and Duplex Doppler evaluation of the deep venous system from the inguinal ligament through the calf veins. FINDINGS: REGION: Left lower extremity. THROMBI: Negative for DVT. Varithena induced thrombus visualized at prox/med calf, dist/med calf, and med/dist thigh. COMPRESSIBILITY: Non-compressible segments. FLOW: Areas of no flow. OTHER: 5.0 mm patent varicose vein remains medial to left knee. CONCLUSION: 1. Successful post ablation occlusion of treated branch saphenous varicosities within the left leg. Dictated by: Jovany Shay M.D. on 07/11/2022 at 08:22 Approved by: Jovany Shay M.D. on 07/11/2022 at 08:26 [facility] VC INJ FOAM SCLERO W US MLTI on 07-05-2022 VC INJ FOAM SCLERO W US MLTI Patient: NATAN ORONA Exam Date: 07/05/2022 : 1995 Gender:F Ordering : DR WILLEM MADDOX M.D. Admission #: [id number] Family : Order #: [id number] CLICK HERE TO VIEW EXAM RADIOLOGY REPORT PROCEDURE: VEIN CENTER INJECTION FOAM SCLEROSING SOLUTION WITH ULTRASOUND MULTIPLE VEINS COMPARISON: VC INJ FOAM SCLERO W US MLTI, 06/28/2022. VC INJ FOAM SCLERO W US MLTI, 06/21/2022. Pre-operative Diagnosis: CEAP class C2 venous insufficiency with pain, tenderness, edema and incompetent left great saphenous vein tributaries and varicose veins, chronic venous insufficiency left leg secondary to venous incompetence Post-operative Diagnosis: CEAP class C2 venous insufficiency with pain, tenderness, edema and incompetent left great saphenous vein tributaries and varicose veins, chronic venous insufficiency left leg secondary to venous incompetence Procedure Performed: 1. Ultrasound-guided microfoam chemical ablation with Varithena(r) 2. Intraoperative ultrasound guidance Physician: Willem West, M.D. Anesthesia: None Indications for Procedure: 27-year-old female presents with a long history of lower extremity pain swelling and large discolored incompetent varicose veins. The patient failed conservative medical therapy including medical compression stockings, exercise and analgesics. Prior procedures include intravenous laser ablation and micro foam chemical ablation. Multiple incompetent varicosities of the left leg. Duplex scan showed reflux and enlarged diameters up to 6 mm. The patient underwent informed consent including management options where the complications of infection, bleeding, pain, and skin injury were discussed. Particular attention was spent discussing thrombus extension and deep vein thrombosis as well as the possibility of pulmonary embolus and treatment with oral or injectable blood thinners. Procedure: The patient walked to the procedure room. All applicable staff donned appropriate apparel. A procedure timeout was performed to confirm correct patient, correct extremity, correct procedure, and correct room set-up including presence of all applicable supplies, devices, and drugs. A duplex ultrasound, performed by myself confirmed the location and incompetence of left leg varicose veins and their course marked on the skin together with the dilated tributaries. The extent of treatment of the vein and the associated varicosities was determined through ultrasound mapping. The patient was placed on the operating room table. The limb was prepped. The skin was punctured with a butterfly needle through the skin with the venous access needle and advanced under ultrasound guidance. The target limb was positioned at 45 degrees of elevation in relation to the torso utilizing a foam pad. The Varithena(r) canister was previously activated and the canister was primed and purged as required in the instructions for use. Following injections were made: 5 mL aliquot of Varithena(r) was drawn into a sterile syringe. Injection into a 4 mm varicose vein distal lateral left lower leg 4 mL aliquot of Varithena(r) was drawn into a sterile syringe. Injection into a 3 mm varicose vein proximal lateral left lower leg 6 mL aliquot of Varithena(r) was drawn into a sterile syringe. Injection into a 6 mm varicose vein distal medial left thigh Varithena(r) was slowly administered at 0.5-1.0 cc/second with close observation by ultrasound of its course in the injected veins. A total volume of 15 mL of Varithena(r) was used. During administration of Varithena(r), the patient was asked to dorsiflex the ankle to limit flow of Varithena(r) into perforating veins. Once appropriate spasm had been confirmed in the treated veins, the vascular catheter was removed from the leg and light pressure was applied over the puncture site for hemostasis The common femoral and deep superficial veins were then evaluated for flow and compressibility prior to dressing placement. The lower extremity was kept elevated at 45 degrees above the horizontal and cording material was applied over the saphenous segments and tributaries to allow for eccentric compression over the target vessels including the targeted saphenous vein(s). A multilayer dressing was applied consisting of foam pads, coban and thigh-high 20-30 mm Hg compression elastic support hose were placed on the patient. The leg was lowered only after compression had been applied and the patient was immediately ambulatory. The patient ambulated 10 minutes under supervision and was without apparent concerns at time of release Post-care instructions include advising patient to keep post-treatment bandages in place and dry for 48 hours, avoid extended periods of inactivity, avoid heavy exercise for one week, wear compression stockings on the treated leg continuously for two weeks, to walk daily for 10 minutes over the next month. T (more content not included)... Normal [facility] VC CONSULT FOLLOWUPon 2022 VC CONSULT FOLLOWUP Patient: LENCHO ORONA Exam Date: 07/04/2022 : 1995 Gender:F Ordering : DR WILLEM MADDOX M.D. Admission #: [id number] Family : Order #: [id number] CLICK HERE TO VIEW EXAM RADIOLOGY REPORT PROCEDURE: VEIN CENTER CONSULTATION FOLLOWUP VEIN CENTER - OFFICE VISIT FOLLOW UP COMPARISON: VC CONSULT FOLLOWUP, 06/27/2022. PROGRESS NOTES: The patient reports some mild bruising and tenderness thin leg post treatment which is improving. There has been interval reduction in varicosities. The patient has followed our recommendations to walk 20-30 minutes once or twice per day since the procedure. Physical exam demonstrates decrease in superficial varicosities of the right leg. Persistent varicosities are identified along the left leg; and bilateral spider veins. Review of the ultrasound performed the same day demonstrates occlusive thrombus extending throughout the treated vein, see separate report, consistent with a successful ablation. No thrombus extending into or beyond the saphenofemoral junction. The patient expressed a desire to proceed with treatment of remaining incompetent varicosities and spider veins. The patient was informed that treatment was a process and would require several procedures/sessions. IMPRESSION: 1. Successful ablation of the treated branch saphenous varicosities within the right leg. 2. 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 3. Bilateral spider veins. PLAN: Endovenous laser ablation of remaining incompetent branch saphenous varicosities within left leg. Nurse notes, history and physical were reviewed and confirmed, see attached forms. The nurse was present throughout the physical exam and consultation Dictated by: Jovany Shay M.D. on 07/04/2022 at 08:15 Approved by: Jovany Shay M.D. on 07/04/2022 at 08:19 Normal [facility] [place] VC EXT VENOUS RT LIMITEDon 0 07-04-2022 VC EXT VENOUS RT LIMITED Patient: NATAN ORONA Exam Date: 07/04/2022 : 1995 Gender:F Ordering : DR WILLEM MADDOX M.D. Admission #: [id number] Family : Order #: [id number] CLICK HERE TO VIEW EXAM RADIOLOGY REPORT PROCEDURE: VEIN CENTER EXTREMITY VENOUS RIGHT LIMITED COMPARISON: VC EXT VENOUS RT LIMITED, 06/20/2022. INDICATIONS: Phlebitis of superficial veins of lower extremity I80.01 TECHNIQUE: Lower extremity walsh scale and Duplex Doppler evaluation of the deep venous system from the inguinal ligament through the calf veins. FINDINGS: REGION: Right lower extremity. THROMBI: Negative for DVT. Varithena induced thrombus visualized at dist/med thigh, prox/posterior calf, and lat/distal calf. COMPRESSIBILITY: Non-compressible segments. FLOW: Areas of no flow. OTHER: No patent varicose veins remain CONCLUSION: 1. Successful post ablation occlusion of treated branch saphenous varicosities within right leg. Dictated by: Jovany Shay M.D. on 07/04/2022 at 08:13 Approved by: Jovany Shay M.D. on 07/04/2022 at 08:15 [facility] VC INJ FOAM SCLERO W US MLTI on 06-28-2022 VC INJ FOAM SCLERO W US MLTI Patient: NATAN ORONAOsiel Exam Date: 06/28/2022 : 1995 Gender:F Ordering : DR WILLEM MADDOX M.D. Admission #: [id number] Family : Order #: [id number] CLICK HERE TO VIEW EXAM RADIOLOGY REPORT PROCEDURE: VEIN CENTER INJECTION FOAM SCLEROSING SOLUTION WITH ULTRASOUND MULTIPLE VEINS COMPARISON: VC INJ FOAM SCLERO W US MLTI, 06/21/2022. VC INJ FOAM SCLERO W US MLTI, 06/13/2022. Pre-operative Diagnosis: CEAP class C2 venous insufficiency with pain, tenderness, edema and incompetent right great saphenous vein and varicose veins, chronic venous insufficiency right leg secondary to venous incompetence Post-operative Diagnosis: CEAP class C2 venous insufficiency with pain, tenderness, edema and incompetent right great saphenous vein and varicose veins, chronic venous insufficiency right leg secondary to venous incompetence Procedure Performed: 1. Ultrasound-guided microfoam chemical ablation with Varithena(r) 2. Intraoperative ultrasound guidance Physician: Willem Maddox M.D. Anesthesia: None Indications for Procedure: 27-year-old female who presents with a long history of lower extremity pain swelling and large discolored varicose veins. The patient failed conservative medical therapy including medical compression stockings, exercise and analgesics. Prior procedures include intravenous laser ablation. Multiple incompetent varicosities of the right leg. Duplex scan showed reflux and enlarged diameters up to 6 mm. The patient underwent informed consent including management options where the complications of infection, bleeding, pain, and skin injury were discussed. Particular attention was spent discussing thrombus extension and deep vein thrombosis as well as the possibility of pulmonary embolus and treatment with oral or injectable blood thinners. Procedure: The patient walked to the procedure room. All applicable staff donned appropriate apparel. A procedure timeout was performed to confirm correct patient, correct extremity, correct procedure, and correct room set-up including presence of all applicable supplies, devices, and drugs. A duplex ultrasound, performed by myself confirmed the location and incompetence of incompetent varicose veins and their course marked on the skin together with the dilated tributaries. The extent of treatment of the vein and the associated varicosities was determined through ultrasound mapping. The patient was placed on the operating room table. The limb was prepped. The skin was punctured with a butterfly needle through the skin with the venous access needle and advanced under ultrasound guidance. The target limb was positioned at 45 degrees of elevation in relation to the torso utilizing a foam pad. The Varithena(r) canister was previously activated and the canister was primed and purged as required in the instructions for use. Following injections were made: 6 mL aliquot of Varithena(r) was drawn into a sterile syringe. Injection into a 4 mm varicose vein medial posterior proximal right lower leg 6 mL aliquot of Varithena(r) was drawn into a sterile syringe. Injection into a 6 mm varicose vein distal medial right thigh 3 mL aliquot of Varithena(r) was drawn into a sterile syringe. Injection into a 3 mm varicose vein lateral right lower leg Varithena(r) was slowly administered at 0.5-1.0 cc/second with close observation by ultrasound of its course in the injected veins. A total volume of 15 mL of Varithena(r) was used. During administration of Varithena(r), the patient was asked to dorsiflex the ankle to limit flow of Varithena(r) into perforating veins. Once appropriate spasm had been confirmed in the treated veins, the vascular catheter was removed from the leg and light pressure was applied over the puncture site for hemostasis The common femoral and deep superficial veins were then evaluated for flow and compressibility prior to dressing placement. The lower extremity was kept elevated at 45 degrees above the horizontal and cording material was applied over the saphenous segments and tributaries to allow for eccentric compression over the target vessels including the targeted saphenous vein(s). A multilayer dressing was applied consisting of foam pads, coban and thigh-high 20-30 mm Hg compression elastic support hose were placed on the patient. The leg was lowered only after compression had been applied and the patient was immediately ambulatory. The patient ambulated 10 minutes under supervision and was without apparent concerns at time of release Post-care instructions include advising patient to keep post-treatment bandages in place and dry for 48 hours, avoid extended periods of inactivity, avoid heavy exercise for one week, wear compression stockings on the treated leg continuously for two weeks, to walk daily for 10 minutes over the next month. The patient was instructed to take an anti-inflammatory m (more content not included)... Normal [facility] VC CONSULT FOLLOWUPon 2022 VC CONSULT FOLLOWUP Patient: LENCHO ORONAOsiel Exam Date: 06/27/2022 : 1995 Gender:F Ordering : DR WILLEM MADDOX M.D. Admission #: [id number] Family : Order #: [id number] CLICK HERE TO VIEW EXAM RADIOLOGY REPORT PROCEDURE: VEIN CENTER CONSULTATION FOLLOWUP VEIN CENTER - OFFICE VISIT FOLLOW UP COMPARISON: VC CONSULT FOLLOWUP, 06/20/2022. PROGRESS NOTES: The patient reports improvement in leg symptoms. There has been interval reduction in varicosities. The patient has followed our recommendations to walk 20-30 minutes once or twice per day since the procedure. Physical exam demonstrates decrease in varicosities of the left leg. Persistent varicosities are identified along the legs bilaterally. Review of the ultrasound performed the same day demonstrates occlusive thrombus extending throughout the treated vein, see separate report, consistent with a successful ablation. No thrombus extending into or beyond the saphenofemoral junction. The patient expressed a desire to proceed with treatment of remaining incompetent varicosities. The patient was informed that treatment was a process and would require several procedures/sessions. IMPRESSION: 1. Successful ablation of the treated branch saphenous varicosities within the left leg. 2. Persistent incompetent varicose veins and lower extremity symptoms bilaterally. PLAN: Microfoam chemical ablation of right leg incompetent branch saphenous varicosities. Nurse notes, history and physical were reviewed and confirmed, see attached forms. The nurse was present throughout the physical exam and consultation Dictated by: Jovany Shay M.D. on 06/27/2022 at 08:08 Approved by: Jovany Shay M.D. on 06/27/2022 at 08:12 Normal [facility] [place] VC EXT VENOUS LT LIMITEDon 0 06-27-2022 VC EXT VENOUS LT LIMITED Patient: NATAN ORONA Exam Date: 06/27/2022 : 1995 Gender:F Ordering : DR WILLEM MADDOX M.D. Admission #: [id number] Family : Order #: [id number] CLICK HERE TO VIEW EXAM RADIOLOGY REPORT PROCEDURE: VEIN CENTER EXTREMITY VENOUS LEFT LIMITED COMPARISON: VC EXT VENOUS LT LIMITED, 06/06/2022. INDICATIONS: Phlebitis of superficial veins of lower extremity I80.02 TECHNIQUE: Lower extremity walsh scale and Duplex Doppler evaluation of the deep venous system from the inguinal ligament through the calf veins. FINDINGS: REGION: Left lower extremity. THROMBI: Negative for DVT. Varithena induced thrombus visualized medial knee and mid/medial calf. COMPRESSIBILITY: Non-compressible segments. FLOW: Areas of no flow. OTHER: CONCLUSION: 1. Successful post ablation occlusion of treated branch saphenous varicosities within the left leg. Dictated by: Jovany Shay M.D. on 06/27/2022 at 08:06 Approved by: Jovany Shay M.D. on 06/27/2022 at 08:07 [facility] VC INJ FOAM SCLERO W US MLTI on 06-21-2022 VC INJ FOAM SCLERO W US MLTI Patient: NATAN ORONA Exam Date: 06/21/2022 : 1995 Gender:F Ordering : DR WILLEM MADDOX M.D. Admission #: [id number] Family : Order #: [id number] CLICK HERE TO VIEW EXAM RADIOLOGY REPORT PROCEDURE: VEIN CENTER INJECTION FOAM SCLEROSING SOLUTION WITH ULTRASOUND MULTIPLE VEINS COMPARISON: VC INJ FOAM SCLERO W US MLTI, 06/13/2022. Pre-operative Diagnosis: CEAP class C2 venous insufficiency with pain, tenderness, edema and incompetent branch saphenous vein, chronic venous insufficiency left leg secondary to venous incompetence Post-operative Diagnosis: CEAP class C2 venous insufficiency with pain, tenderness, edema and incompetent branch saphenous vein, chronic venous insufficiency left leg secondary to venous incompetence Procedure Performed: 1. Ultrasound-guided microfoam chemical ablation with Varithena(r) 2. Intraoperative ultrasound guidance Physician: Jovany Shay M.D. Anesthesia: None. Indications for Procedure: 27 year old female. Symptoms including chronic leg swelling, bulging veins, discolored veins for many years despite conservative medical therapy including medical compression stockings, exercise and analgesics. Prior procedures include: Endovenous laser ablation and microfoam chemical ablation. Multiple incompetent varicosities of the left leg. Duplex scan showed reflux and enlarged diameters up to 5 mm. The patient has undergone informed consent including management options where the complications of infection, bleeding, pain, and skin injury were discussed. Particular attention was spent discussing thrombus extension and deep vein thrombosis as well as the possibility of pulmonary embolus and treatment with oral or injectable blood thinners. Procedure: The patient walked to the procedure room. All applicable staff donned appropriate apparel. A procedure timeout was performed to confirm correct patient, correct extremity, correct procedure, and correct room set-up including presence of all applicable supplies, devices, and drugs. A duplex ultrasound, performed by myself confirmed the location and incompetence of branch saphenous varicosities and their course was marked on the skin together with the dilated tributaries. The extent of treatment of the veins and the associated varicosities was determined through ultrasound mapping. The skin was prepped and then punctured with a butterfly needle and advanced under ultrasound guidance. The Varithena(r) canister was activated and the canister was primed and purged as required in the instructions for use. Varithena(r) was drawn into a sterile syringe. Varithena(r) was slowly administered at 0.5-1.0 cc/second with close observation by ultrasound of its course in the vessels. Total volume utilized was: 14 mL (7 mL within a 5 mm varicosity of the left mid medial lower leg; 7 mL within a 5 mm varicosity of the left medial knee). Following administration of Varithena(r), the leg was elevated and the patient was asked to repeatedly dorsiflex the ankle to limit flow of Varithena(r) into perforating veins. Once appropriate spasm had been confirmed in the treated veins, the vascular catheter was removed from the leg and light pressure was applied over the puncture site for hemostasis The common femoral and deep superficial veins were then evaluated for flow and compressibility prior to dressing placement. The lower extremity was kept elevated at 45 degrees above the horizontal and cording material was applied over the saphenous segments and tributaries to allow for eccentric compression over the target vessels including the targeted saphenous vein(s). A multilayer dressing was applied consisting of foam pads, coban and thigh-high 20-30 mm Hg compression elastic support hose were placed on the patient. The leg was lowered only after compression had been applied and the patient was immediately ambulatory. The patient ambulated 10 minutes under supervision and was without apparent concerns at time of release Post-care instructions include advising patient to keep post-treatment bandages in place and dry for 48 hours, avoid extended periods of inactivity, avoid heavy exercise for one week, wear compression stockings on the treated leg continuously for two weeks, to walk daily for 10 minutes over the next month. The patient was instructed to take an anti-inflammatory medicine as needed and to follow up for color duplex scan of the Saphenous veins, the treated branch saphenous varicosities, the adjacent deep veins, and additional treatment within 7 days. PERSONNEL: Johnie Cai R.N. Dictated by: Jovany Shay M.D. on 06/21/2022 at 11:09 Approved by: Jovany Shay M.D. on 06/21/2022 at 11:14 [facility] VC CONSULT FOLLOWUPon 2022 VC CONSULT FOLLOWUP Patient: LENCHO ORONA Exam Date: 06/20/2022 : 1995 Gender:F Ordering : DR WILLEM MADDOX M.D. Admission #: [id number] Family : Order #: [id number] CLICK HERE TO VIEW EXAM RADIOLOGY REPORT PROCEDURE: VEIN CENTER CONSULTATION FOLLOWUP VEIN CENTER - OFFICE VISIT FOLLOW UP COMPARISON: VC CONSULT FOLLOWUP, 06/06/2022. VC CONSULT FOLLOWUP, 05/23/2022. PROGRESS NOTES: The patient reports no significant pain following micro foam chemical ablation right leg incompetent varicose veins. The patient did wear her compression stocking. The patient did not require analgesics. The patient has followed our recommendations to walk 20-30 minutes once or twice per day since the procedure. Physical exam demonstrates significant improvement in visual appearance of her varicose veins. Multiple thrombosed varicose veins can be palpated. Several areas of bruising or identified along the posterior calf measuring up to 4 cm in diameter. Review of the ultrasound performed the same day demonstrates occlusive thrombus extending throughout the treated right leg varicose veins. Residual incompetent varicose veins noted bilaterally. The patient expressed a desire to proceed with treatment of incompetent left leg varicose veins. IMPRESSION: 1. Successful ablation of incompetent right leg varicose veins 2. Persistent incompetent bilateral varicose veins PLAN: Micro foam chemical ablation left leg Nurse notes, history and physical were reviewed and confirmed, see attached forms. The nurse was present throughout the physical exam and consultation Dictated by: Willem Maddox MD on 06/20/2022 at 13:39 Approved by: Willem Maddox MD on 06/20/2022 at 13:41 Normal [facility] [place] VC EXT VENOUS RT LIMITEDon 0 06-20-2022 VC EXT VENOUS RT LIMITED Patient: NATAN ORONA Exam Date: 06/20/2022 : 1995 Gender:F Ordering : DR WILLEM MADDOX M.D. Admission #: [id number] Family : Order #: [id number] CLICK HERE TO VIEW EXAM RADIOLOGY REPORT PROCEDURE: VEIN CENTER EXTREMITY VENOUS RIGHT LIMITED COMPARISON: VC EXT VENOUS RT LIMITED, 05/23/2022. INDICATIONS: Phlebitis of superficial veins of lower extremity i80.01 TECHNIQUE: Lower extremity walsh scale and Duplex Doppler evaluation of the deep venous system from the inguinal ligament through the calf veins. FINDINGS: REGION: Right lower extremity. THROMBI: Negative for DVT. Varithena induced thrombus visualized at mid/med calf, mid/lat calf, and mid/ant thigh. COMPRESSIBILITY: Non-compressible segments corresponding to 3. FLOW: Areas of no flow corresponding to thrombus OTHER: Multiple varicose veins remain. *Exam performed in accordance with [facility] practice guidelines- Peripheral venous ultrasound, May 29, 2009. CONCLUSION: Post ablation occlusion of treated incompetent varicose veins Dictated by: Willem Maddox MD on 06/20/2022 at 13:33 Approved by: Willem Maddox MD on 06/20/2022 at 13:34 Normal [facility] [place] VC INJ FOAM SCLERO W US MLTI on 06-13-2022 VC INJ FOAM SCLERO W US MLTI Patient: NATAN ORONA Exam Date: 06/13/2022 : 1995 Gender:F Ordering : DR WILLEM MADDOX M.D. Admission #: [id number] Family : Order #: [id number] CLICK HERE TO VIEW EXAM RADIOLOGY REPORT PROCEDURE: VEIN CENTER INJECTION FOAM SCLEROSING SOLUTION WITH ULTRASOUND MULTIPLE VEINS COMPARISON: VC COMP CONSULTATION, 04/11/2022. Pre-operative Diagnosis: CEAP class C2 venous insufficiency with pain, tenderness, edema and incompetent branch saphenous vein, chronic venous insufficiency right leg secondary to venous incompetence Post-operative Diagnosis: CEAP class C2 venous insufficiency with pain, tenderness, edema and incompetent branch saphenous vein, chronic venous insufficiency right leg secondary to venous incompetence Procedure Performed: 1. Ultrasound-guided microfoam chemical ablation with Varithena(r) 2. Intraoperative ultrasound guidance Physician: Jovany Zieber, M.D. Anesthesia: None. Indications for Procedure: 27 year old female. Symptoms including dilated bulging veins, discolored veins, leg pain and swelling for many years despite conservative medical therapy including medical compression stockings, exercise and analgesics. Prior procedures include: Endovenous laser ablation. Multiple incompetent varicosities of the right leg. Duplex scan showed reflux and enlarged diameters up to 6 mm. The patient has undergone informed consent including management options where the complications of infection, bleeding, pain, and skin injury were discussed. Particular attention was spent discussing thrombus extension and deep vein thrombosis as well as the possibility of pulmonary embolus and treatment with oral or injectable blood thinners. Procedure: The patient walked to the procedure room. All applicable staff donned appropriate apparel. A procedure timeout was performed to confirm correct patient, correct extremity, correct procedure, and correct room set-up including presence of all applicable supplies, devices, and drugs. A duplex ultrasound, performed by myself confirmed the location and incompetence of branch saphenous varicosities and their course was marked on the skin together with the dilated tributaries. The extent of treatment of the veins and the associated varicosities was determined through ultrasound mapping. The skin was prepped and then punctured with a butterfly needle and advanced under ultrasound guidance. The Varithena(r) canister was activated and the canister was primed and purged as required in the instructions for use. Varithena(r) was drawn into a sterile syringe. Varithena(r) was slowly administered at 0.5-1.0 cc/second with close observation by ultrasound of its course in the vessels. Total volume utilized was: 15 mL (4 Lisa within a 4 mm incompetent varicosity of the right mid medial lower leg; 8 mL within a 5 mm varicosity of the right lateral mid lower leg; 3 mL within a 6 mm varicosity of the right anterior thigh). Following administration of Varithena(r), the leg was elevated and the patient was asked to repeatedly dorsiflex the ankle to limit flow of Varithena(r) into perforating veins. Once appropriate spasm had been confirmed in the treated veins, the vascular catheter was removed from the leg and light pressure was applied over the puncture site for hemostasis The common femoral and deep superficial veins were then evaluated for flow and compressibility prior to dressing placement. The lower extremity was kept elevated at 45 degrees above the horizontal and cording material was applied over the saphenous segments and tributaries to allow for eccentric compression over the target vessels including the targeted saphenous vein(s). A multilayer dressing was applied consisting of foam pads, coban and thigh-high 20-30 mm Hg compression elastic support hose were placed on the patient. The leg was lowered only after compression had been applied and the patient was immediately ambulatory. The patient ambulated 10 minutes under supervision and was without apparent concerns at time of release Post-care instructions include advising patient to keep post-treatment bandages in place and dry for 48 hours, avoid extended periods of inactivity, avoid heavy exercise for one week, wear compression stockings on the treated leg continuously for two weeks, to walk daily for 10 minutes over the next month. The patient was instructed to take an anti-inflammatory medicine as needed and to follow up for color duplex scan of the Saphenous veins, the treated branch saphenous varicosities, the adjacent deep veins, and additional treatment within 7 days. PERSONNEL: Johnie Cai R.N. Dictated by: Jovany Shay M.D. on 06/13/2022 at 12:04 Approved by: oJvany Shay M.D. on 06/13/2022 at 12:10 Normal [facility] [place] VC CONSULT FOLLOWUPon 2022 VC CONSULT FOLLOWUP Patient: LENCHO ORONA Exam Date: 06/06/2022 : 1995 Gender:F Ordering : DR WILLEM MADDOX M.D. Admission #: [id number] Family : Order #: [id number] CLICK HERE TO VIEW EXAM RADIOLOGY REPORT PROCEDURE: VEIN CENTER CONSULTATION FOLLOWUP VEIN CENTER - OFFICE VISIT FOLLOW UP COMPARISON: VC CONSULT FOLLOWUP, 05/23/2022. PROGRESS NOTES: The patient reports no significant discomfort following intravenous laser ablation of the left great saphenous vein. The patient has compression stocking. The patient did require oral analgesics. The patient has followed our recommendations to walk 20-30 minutes once or twice per day since the procedure. Physical exam demonstrates 3 areas of bruising measuring 4-5 cm medial left thigh, likely related to tumescence injection. Thrombosed left great saphenous vein to partial palpated. Multiple dilated varicose veins noted bilaterally. No areas of erythema or warmth to suggest cellulitis or thrombophlebitis. No active ulceration Review of the ultrasound performed the same day demonstrates occlusive thrombus extending throughout the treated left great saphenous vein with heat induced thrombus 1.1 cm from the saphenofemoral junction. Bilateral residual incompetent varicose veins The patient expressed a desire to proceed with treatment of incompetent varicose veins with micro foam chemical ablation. IMPRESSION: 1. Successful ablation of the left great saphenous vein 2. Persistent bilateral incompetent varicose veins PLAN: Micro foam chemical ablation of incompetent varicose veins Nurse notes, history and physical were reviewed and confirmed, see attached forms. The nurse was present throughout the physical exam and consultation Dictated by: Willem Maddox MD on 06/06/2022 at 14:23 Approved by: Willem Maddox MD on 06/06/2022 at 14:25 Normal [facility] [place] VC EXT VENOUS LT LIMITEDon 0 06-06-2022 VC EXT VENOUS LT LIMITED Patient: NATAN ORONA Exam Date: 06/06/2022 : 1995 Gender:F Ordering : DR WILLEM MADDOX M.D. Admission #: [id number] Family : Order #: [id number] CLICK HERE TO VIEW EXAM RADIOLOGY REPORT PROCEDURE: VEIN CENTER EXTREMITY VENOUS LEFT LIMITED COMPARISON: None. INDICATIONS: Phlebitis and thrombophlebitis of superficial veins of left lower extremity I80.02 TECHNIQUE: Lower extremity walsh scale and Duplex Doppler evaluation of the deep venous system from the inguinal ligament through the calf veins. FINDINGS: REGION: Left lower extremity. THROMBI: Negative for DVT. Heat induced thrombus visualized 1.1 cm from the SFJ. The heat induced thrombus extends from groin to distal thigh. COMPRESSIBILITY: Non-compressible segments corresponding to thrombus. FLOW: Absent flow corresponding to thrombus *Exam performed in accordance with [facility] practice guidelines- Peripheral venous ultrasound, May 29, 2009. CONCLUSION: Post ablation occlusion of the left great saphenous vein with heat induced thrombus 1.1 cm from the junction Dictated by: Willem Maddox MD on 06/06/2022 at 14:22 Approved by: Willem Maddox MD on 06/06/2022 at 14:23 Normal [facility] [place] VC ENDOVENOUS ABL 1ST V LTon 05-30-2022 VC ENDOVENOUS ABL 1ST V LT Patient: NATAN ORONA Exam Date: 05/30/2022 : 1995 Gender:F Ordering : DR WILLEM MADDOX M.D. Admission #: [id number] Family : Order #: [id number] CLICK HERE TO VIEW EXAM RADIOLOGY REPORT PROCEDURE: VEIN CENTER ENDOVENOUS ABLATION FIRST VEIN LEFT GREAT SAPHENOUS VEIN COMPARISON: None. INDICATIONS: Pain co-occurrent and due to varicose veins of bilateral legs I83.813 OPERATIVE REPORT: The risks and benefits of the procedure had been previously discussed, and were rediscussed at length. Informed written consent was obtained by and Johnie Cai assisted. Time out procedure was performed. The left lower extremity was prepared and draped in the usual sterile fashion to allow knee flexion in the sterile field. Duplex ultrasound probe was draped in a sterile cover, sterile transmission gel was used. Venous mapping was performed with the areas of dilation and large tributaries marked. The total length was 26 cm from the entry at the level of the knee to 3 cm below the saphenofemoral junction. The diameter of the greater saphenous vein ranged from 8-11 mm. A 30 gauge needle and 1% buffered lidocaine was used to anesthetize the entry site. A 4 mm incision was made with a scalpel and the saphenous vein was entered percutaneously under direct ultrasound guidance with a micropuncture set, a single stick was successful in gaining access. A micro-guide wire was inserted and the needle removed. A micro-set including a dilator was inserted over the microwire and the needle and dilator were removed. A 0.018 guide wire was inserted through the micro-set and threaded through the saphenous vein to the saphenofemoral junction. The dilator was removed and an introducer sheath was inserted over the wire until the end of the sheath entered the saphenofemoral junction. The dilator and wire were removed and the 600 micron fiber was introduced and placed and positioned so that it extended beyond the sheath and was 3 cm peripheral to the saphenofemoral femoral junction. Final position of the fiber was determined by ultrasound guidance and duplex imaging. Tumescent anesthetic was delivered by ultrasound guidance. 100 cc of fluid was delivered along the entire course of the saphenous vein. The solution consisted of 500 cc of normal saline with 20mL of 1% lidocaine and 10 mL of sodium bicarbonate. A final positioning check was made. The energy source was turned on by means of the foot pedal and the fiber and sheath were withdrawn. The total number of Joules delivered was 1146. The laser was active for 143 seconds under continuous pulse, average laser use of 8 J. Laser start time 2:04 p.m. May 30, 2022. Laser stop time 2:08 p.m. May 30, 2022 A duplex ultrasound revealed compressibility and flow at the saphenofemoral junction immediately after the procedure. Hemostasis at the access site was achieved. The skin incision of the saphenous vein was closed with a 4 x 4. A compression stocking was applied. Postop instructions were given. A follow up appointment was recommended and scheduled. The patient tolerated the procedure well and was discharged in good condition. CONCLUSION: 1. Technically successful endovenous laser ablation of the left great saphenous vein. Dictated by: Willem Maddox MD on 05/30/2022 at 14:09 Approved by: Willem Maddox MD on 05/30/2022 at 14:12 Normal [facility] [place] VC CONSULT FOLLOWUPon 2022 VC CONSULT FOLLOWUP Patient: LENCHO ORONA AVANI Mullen Exam Date: 05/23/2022 : 1995 Gender:F Ordering : DR WILLEM MADDOX M.D. Admission #: [id number] Family : Order #: [id number] CLICK HERE TO VIEW EXAM RADIOLOGY REPORT PROCEDURE: VEIN CENTER CONSULTATION FOLLOWUP VEIN CENTER - OFFICE VISIT FOLLOW UP COMPARISON: None. PROGRESS NOTES: The patient reports mild tenderness and bruising within region of right great saphenous vein which have improved. There has been interval reduction in varicosities. The patient has followed our recommendations to walk 20-30 minutes once or twice per day since the procedure. Physical exam demonstrates mild bruising within proximal right 5; no evidence of infection. Slight decrease in varicosities of the right leg. Persistent varicosities are identified along the legs bilaterally. Review of the ultrasound performed the same day demonstrates occlusive thrombus extending throughout the treated vein, see separate report, consistent with a successful ablation. No thrombus extending into or beyond the saphenofemoral junction. The patient expressed a desire to proceed with treatment of remaining incompetent veins. The patient was informed that treatment was a process and would require several procedures/sessions. IMPRESSION: 1. Successful ablation of the right great saphenous vein 2. Persistent dilated incompetent veins and bilateral lower extremity symptoms PLAN: Endovenous laser therapy of left great saphenous vein. Nurse notes, history and physical were reviewed and confirmed, see attached forms. The nurse was present throughout the physical exam and consultation Dictated by: Jovany Shay M.D. on 05/23/2022 at 14:24 Approved by: Jovany Shay M.D. on 05/23/2022 at 14:27 Normal [facility] [place] VC EXT VENOUS RT LIMITEDon 0 05-23-2022 VC EXT VENOUS RT LIMITED Patient: NATAN ORONA Exam Date: 05/23/2022 : 1995 Gender:F Ordering : DR WILLEM MADDOX M.D. Admission #: [id number] Family : Order #: [id number] CLICK HERE TO VIEW EXAM RADIOLOGY REPORT PROCEDURE: VEIN CENTER EXTREMITY VENOUS RIGHT LIMITED COMPARISON: None. INDICATIONS: Phlebitis and thrombohplebitis of superficial veins of right lower extremity I80.01 TECHNIQUE: Lower extremity walsh scale and Duplex Doppler evaluation of the deep venous system from the inguinal ligament through the calf veins. FINDINGS: REGION: Right lower extremity. THROMBI: Negative for DVT. Heat induced thrombus in right GSV 2.4 cm from SFJ and extends to distal thigh and into a varicosity medial thigh. COMPRESSIBILITY: Non-compressible segments. FLOW: Areas of no flow. CONCLUSION: 1. Successful post ablation occlusion of right great saphenous vein. Dictated by: Jovany Shay M.D. on 05/23/2022 at 14:23 Approved by: Jvoany Shay M.D. on 05/23/2022 at 14:24 Normal [facility] [place] VC ENDOVENOUS ABL 1ST V RTon 05-16-2022 VC ENDOVENOUS ABL 1ST V RT Patient: NATAN ORONA Exam Date: 05/16/2022 : 1995 Gender:F Ordering : DR WILLEM MADDOX M.D. Admission #: [id number] Family : Order #: [id number] CLICK HERE TO VIEW EXAM RADIOLOGY REPORT PROCEDURE: VEIN CENTER ENDOVENOUS ABLATION FIRST VEIN RIGHT COMPARISON: VC VENOUS REFLUX DYLON LMT, 04/11/2022. INDICATIONS: Pain co-occurrent and due to varicose veins of bilateral legs I83.813 OPERATIVE REPORT: The risks and benefits of the procedure had been previously discussed, and were rediscussed at length. Informed written consent was obtained by and Johnie moreira. Time out procedure was performed. The right lower extremity was prepared and draped in the usual sterile fashion to allow knee flexion in the sterile field. Duplex ultrasound probe was draped in a sterile cover, sterile transmission gel was used. Venous mapping was performed with the areas of dilation and large tributaries marked. The total length was 10 cm from the entry mid -upper thigh to 3 cm below the saphenofemoral junction. The vein could not be entered lower in the leg due to alternating tortuous dilated segments with narrowed intervening segment The diameter of the greater saphenous vein ranged from 7 mm. A 30 gauge needle and 1% buffered lidocaine was used to anesthetize the entry site. A 4 mm incision was made with a scalpel and the saphenous vein was entered percutaneously under direct ultrasound guidance with a micropuncture set, a single stick was successful in gaining access. A micro-guide wire was inserted and the needle removed. A micro-set including a dilator was inserted over the microwire and the needle and dilator were removed. A 0.018 guide wire was inserted through the micro-set and threaded through the saphenous vein to the saphenofemoral junction. The dilator was removed and an introducer sheath was inserted over the wire until the end of the sheath entered the saphenofemoral junction. The dilator and wire were removed and the 600 micron fiber was introduced and placed and positioned so that it extended beyond the sheath and was 3 cm peripheral to the saphenofemoral femoral junction. Final position of the fiber was determined by ultrasound guidance and duplex imaging. Tumescent anesthetic was delivered by ultrasound guidance. Seventy-five cc of fluid was delivered along the entire course of the saphenous vein. The solution consisted of 500 cc of normal saline with 20mL of 1% lidocaine and 10 mL of sodium bicarbonate. A final positioning check was made. The energy source was turned on by means of the foot pedal and the fiber and sheath were withdrawn. The total number of Joules delivered was 571. The laser was active for 71 seconds under continuous pulse, average laser use of 8 J. Laser start time 1:43 p.m. May 16, 2022. Laser stop time 1:44 p.m. May 16, 2022. A duplex ultrasound revealed compressibility and flow at the saphenofemoral junction immediately after the procedure. Hemostasis at the access site was achieved. The skin incision of the saphenous vein was closed with a 4 x 4. A compression stocking was applied. Postop instructions were given. A follow up appointment was recommended and scheduled. The patient tolerated the procedure well and was discharged in good condition. CONCLUSION: 1. Technically successful endovenous laser ablation of the proximal right great saphenous vein. Dictated by: Jovany Shay M.D. on 05/16/2022 at 13:55 Approved by: oJvany Shay M.D. on 05/16/2022 at 13:58 Normal [facility] COMP CONSULTATIONon 04-11 VC COMP CONSULTATION Patient: NATAN ORONA Exam Date: 04/11/2022 : 1995 Gender:F Ordering : DR WILLEM MADDOX M.D. Admission #: [id number] Family : Order #: [id number] CLICK HERE TO VIEW EXAM RADIOLOGY REPORT PROCEDURE: VEIN CENTER CONSULTATION VEIN CENTER - OFFICE VISIT INITIAL COMPARISON: None. PROGRESS NOTES: [age] year old female who presents with a 10 year history of dilated, bulging veins, discolored veins, leg pain and swelling. The patient's right leg symptoms are worse than the left. There has been a progression of symptoms. This increases with prolonged leg dependency. The patient describes an improvement with rest and elevation. The patient denies any signs and symptoms to suggest arterial ischemia. The patient describes a family history varicose veins on maternal side. The patient has drinking and smoking history of : None. Patient has a past medical history significant for varicose veins. The patient denies a history of deep venous thrombus or pulmonary embolus. See separate history and physical for medication list. No prior treatment for varicose or spider veins. Long-term use of compression stockings. After review of nurse notes, history and physical exam I discussed at length the pathophysiology of venous hypertension and possible treatments, therapies and strategies available. We discussed at length the importance of elevating the lower extremities above the level of the heart, increased physical activity and compression stocking use. Ultrasound venous reflux study performed today was discussed at length with the patient. The report demonstrates dilated, incompetent great saphenous vein bilaterally with numerous dilated and incompetent branch saphenous varicosities. Dilated, incompetent calf fruit worker veins.. PHYSICAL EXAM: The right leg demonstrates multiple prominent varicosities, several prominent spider veins, no ulceration, minimal edema, no skin discoloration. The left leg demonstrates several prominent varicosities, a few spider veins, no ulceration, minimal edema, no skin discoloration. Both thighs, legs and feet were symmetrically warm to the touch. Good posterior tibial and dorsalis pedis pulses were present bilaterally. IMPRESSION: 1. Bilateral lower extremity venous insufficiency 2. Bilateral lower extremity varicose veins 3. Minimal bilateral lower extremity subcutaneous edema 4. No flow significant arterial disease 5. CEAP: C2, EC, AP, FL PLAN: 1. Continued use of compression stockings 2. Elevated legs and increased physical activity symptomatic relief 3. Endovenous laser ablation of right great saphenous vein followed by left great saphenous vein. 4. Microfoam chemical ablation of incompetent branch saphenous varicosities bilaterally. Sclerotherapy of prominent spider veins bilaterally. Nurse notes, history and physical were reviewed and confirmed, see attached forms. The nurse was present throughout the physical exam and consultation Dictated by: Jovany Shay M.D. on 04/11/2022 at 14:56 Approved by: Jovany Shay M.D. on 04/11/2022 at 15:01 Normal [facility] [place] VC VENOUS REFLUX DYLON LMTon 0 04-11-2022 VC VENOUS REFLUX DYLON LMT Patient: NATAN ORONA Exam Date: 04/11/2022 : 1995 Gender:F Ordering : DR WILLEM MADDOX M.D. Admission #: [id number] Family : Order #: [id number] CLICK HERE TO VIEW EXAM RADIOLOGY REPORT PROCEDURE: VEIN CENTER ULTRASOUND VENOUS REFLUX BILATERAL LIMTED COMPARISON: None. INDICATIONS: Pain co-occurrent and due to varicose veins of bilateral legs i83.813 TECHNIQUE: Duplex imaging of the lower extremity to assess the deep and superficial venous system for the presence of deep or superficial venous incompetence and to document the location and severity of disease. The study includes evaluation of the great saphenous vein (GSV), anterior accessory saphenous vein (AASV) and small saphenous vein (SSV). Patient scanned in reverse Trendelenburg and standing. FINDINGS: RIGHT LOWER EXTREMITY: Saphenofemoral Junction Reflux: Yes 9.1mm 3.8 sec GSV: Diam (mm) Reflux/ Time (sec) Proximal Thigh 6.6 Yes 3.8 Mid Thigh 5.7 Yes 2.0 Distal Thigh 5.1 Yes 2.2 Prox Calf 3.5 Yes 1.5 Mid Calf 2.4 Yes 0.8 Saphenopopliteal Junction Reflux: 4.2mm No SSV: Proximal Calf 2.5 Yes 0.4 Mid Calf 4.4 Yes 1.2 AASV: Proximal Thigh 4.3 Yes 0.8 Mid Thigh 3.0 Yes 1.0 Distal Thigh Thrombi: No acute or chronic thrombus visualized Compressibility: Normal Flow: Normal Preforator: Dist/med calf 2.3mm with 0.5s reflux. Mid/med calf 3.9mm with 1.2s reflux. Tech Note: Incompetent SFJ and GSV. SSV is small and tortuous at proximal calf. Patent varicose vein prox/post calf 3.7mm with 3.1s reflux. Patent varicose vein med knee 7.6mm with 2.5s reflux. Patent varicose vein dist/med thigh 11.9mm with 3.4s reflux. Patent varicose vein mid/med thigh 4.4mm with 1.2s reflux. 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 Mid/med calf 5.0mm with 0s reflux. Tech Note: Incompetent SFJ and GSV. Patent varicose vein prox/med calf 9.8mm with 3.2s reflux. Patent varicose vein dist/med thigh 8.4mm with 2.1s reflux. Patent varicose vein mid/med thigh 10.0mm with 2.1s reflux. Patent varicose vein prox/ant calf 5.1mm with 1.0s reflux. Patent varicose vein dist/ant thigh 7.7mm with 1.3s reflux. CONCLUSION: 1. Dilated, incompetent great saphenous veins bilaterally. 2. Incompetent calf fruit worker veins bilaterally. 3. Numerous incompetent and dilated branch saphenous varicosities bilaterally. 4. Consultation for endovenous ablation is recommended. Dictated by: Jovany Shay M.D. on 04/11/2022 at 14:40 Approved by: Jovany Shay M.D. on 04/11/2022 at 14:56 Normal [facility] CBC AUTO DIFFon 10-19-2021 BASO # 0.0 103/ul Normal 0.0-0.1 [facility] Comment on above: Performed By: #### C BC ####[facility] [address] [place] [address]Dr. Tanmay Carrera Basophils/100 WBC (Bld) 1.0 % Normal 0.2-2.0 [facility] Comment on above: Performed By: #### C BC ####[facility] [address] [place], [place] [address]DrOsiel Carrera EO # 0.1 103/ul Normal 0.0-0.7 [facility] [place] Comment on above: Performed By: #### C BC ####[facility] [address] [place] [address]DrOsiel Carrera Eosinophils/100 WBC (Bld) 1.2 % Normal 0.9-7.0 [facility] Comment on above: Performed By: #### C BC ####[facility] [address] [place] [address]DrOsiel Carrera Erythrocyte distribution width (RBC) [Ratio] 11.9 % Normal 11.0-15.0 [facility] Comment on above: Performed By: #### C BC ####[facility] [address] [place] [address]DrOsiel Carrera Hematocrit (Bld) [Volume fraction] 36.4 % Normal 36.0-48.0 [facility] [place] Comment on above: Performed By: #### C BC ####[facility] [address] [place] [address]DrOsiel Carrera Hemoglobin (Bld) [Mass/Vol] 12.1 g/dL Normal 12.0-16.0 [facility] [place] Comment on above: Performed By: #### C BC ####[facility] [address] [place] [address]DrOsiel Carrera IG # 0.00 10e3/ul Normal 0.00-0.03 [facility] [place] Comment on above: Performed By: #### C BC ####[facility] [address] [place], [place] [address]DrOsiel Carrera IG % 0.0 % Normal 0.0-0.5 [facility] [place] Comment on above: Performed By: #### C BC ####[facility] [address] [place], [place] [address]DrOsiel Carrera LYMPH # 1.5 103/ul Normal 1.2-3.8 [facility] Comment on above: Performed By: #### C BC ####[facility] [address] [place], [place] [address]DrOsiel Carrera Lymphocytes/100 WBC (Bld) 36.1 % Normal 20.5-60.0 [facility] [place] Comment on above: Performed By: #### C BC ####[facility] [address] [place], [place] [address]DrOsiel Carrera MANUAL DIFF REQ NO Normal [facility] [place] Comment on above: Performed By: #### C BC ####[facility] [address] [place] [address]DrOsiel Carrera MCH (RBC) [Entitic mass] 31.2 pg Normal 26.7-34.0 [facility] [place] Comment on above: Performed By: #### C BC ####[facility] [address] [place] [address]DrOsiel Carrera MCHC (RBC) [Mass/Vol] 33.2 g/dL Normal 29.9-35.2 [facility] [place] Comment on above: Performed By: #### C BC ####[facility] [address] [place] [address]Dr. Tanmay Carrera MCV (RBC) [Entitic vol] 93.8 fL Normal 81.0-99.0 [facility] [place] Comment on above: Performed By: #### C BC ####[facility] [address] [place] [address]Dr. Tanmay Deandre MONO # 0.5 103/ul Normal 0.3-0.8 [facility] [place] Comment on above: Performed By: #### C BC ####[facility] [address] [place] [address]Dr. Tanmay Carrera Monocytes/100 WBC (Bld) 11.3 % Normal 1.7-12.0 [facility] Comment on above: Performed By: #### C BC ####[facility] [address] [place], [place] [address]Dr. Tanmay Deandre NEUT # 2.1 103/ul Normal 1.4-6.5 [facility] Comment on above: Performed By: #### C BC ####[facility] [address] [place], [place] [address]Dr. Shanitasalome Carrera Neutrophils/100 WBC (Bld) 50.4 % Normal 43.0-75.0 [facility] Comment on above: Performed By: #### C BC ####[facility] [address] [place], [place] [address]Dr. Tanmay Carrera Platelet mean volume (Bld) [Entitic vol] 11.1 fL Normal 9.5-13.5 [facility] Comment on above: Performed By: #### C BC ####[facility] [address] [place], [place] [id number]. Tanmay Carrera PLT 243 103/ul Normal 150-450 [facility] Comment on above: Performed By: #### C BC ####[facility] [address] [id number]. Tanmay Carrera RBC 3.88 106/ul Critically low 4.20-5.40 [facility] Comment on above: Performed By: #### C BC ####[facility] [address] [address]Dr. Tanmay Carrera WBC 4.2 103/ul Normal 4.0-11.0 [facility] Comment on above: Performed By: #### C BC ####[facility] [address] [place] [id number] Carrera GLYCOHEMOGLOBIN A1Con 2021 ADA RECOMMENDATION SEE BELOW Normal [facility] Comment on above: Result Comment: ADA RECOMMENDED LIMIT 4.0 - 6.0 ADA THERAPEUTIC TARGET < 7.0 ACTION SUGGESTED > 7.0 Performed By: #### A 1C ####[facility] [address] [place] [address]Dr. Tanmay Carrera Glucose [Mass/Vol] 103 mg/dL Normal [facility] Comment on above: Performed By: #### A 1C ####[facility] [address] [place] [address]Dr. Tanmay Carrera HbA1c (Bld) [Mass fraction] 5.2 % Normal 4.5-6.2 [facility] Comment on above: Performed By: #### A 1C ####[facility] [address] [place] [address]DrOsiel Carrera LIPID PROFILEon 10-19-2021 CHOL-HDL RATIO NORM SEE BELOW Normal [facility] Comment on above: Result Comment: 3.3 - 4.4 LOW RISK 4.4 - 7.1 AVERAGE RISK 7.1 - 11.0 MODERATE RISK >11.0 HIGH RISK Performed By: #### C MP, LIPID, TSH #### [facility] [address] [address] [address] Tanmay Carrera Cholesterol [Mass/Vol] 169 mg/dL Normal <=200 [facility] Comment on above: Performed By: #### C MP, LIPID, TSH #### [facility] [address] [address] [address] Tanmay Carrera Cholesterol in HDL [Mass/Vol] 53 mg/dL Normal 40-60 [facility] Comment on above: Performed By: #### C MP, LIPID, TSH #### [facility] [address] [address] [address] Tanmay Carrera Cholesterol in LDL [Mass/Vol] 104.6 mg/dL Normal [facility] Comment on above: Performed By: #### C MP, LIPID, TSH #### [facility] [address] [place] [address] Dr. Tanmay Carrera Cholesterol.total/C holesterol in HDL [Mass ratio] 3.2 {ratio} Normal [facility] Comment on above: Performed By: #### C MP, LIPID, TSH #### [facility] [address] [place] [address] Dr. Tanmay Carrera HDL NORMAL > or = 60 mg/dl - LO W CARDIOVASCULAR RISK <40 mg/dl - HIGH CARDIOVASCULAR RISK Normal [facility] Comment on above: Performed By: #### C MP, LIPID, TSH #### [facility] [address] [place] [address] Dr. Tanmay Carrera LDL CALC NORMAL SEE BELOW Normal [facility] Comment on above: Result Comment: <100 mg/dl OPTIMAL 100 - 129 mg/dl NEAR OR ABOVE OPTIMAL 130 - 159 mg/dl BORDERLINE HIGH 160 - 189 mg/dl HIGH >190 mg/dl VERY HIGH Performed By: #### C MP, LIPID, TSH #### [facility] [address] [place] [address] Dr. Tanmay Carrera Triglyceride [Mass/Vol] 57 mg/dL Normal <=150 [facility] Comment on above: Performed By: #### C MP, LIPID, TSH #### [facility] [address] [place] [address] Dr. Tanmay Carrera VLDL CALC 11.4 mg/dL Normal [facility] Comment on above: Performed By: #### C MP, LIPID, TSH #### [facility] [address] [place] [address] Dr. Tanmay Carrera PROF 14(COMP METB)on 022 Albumin [Mass/Vol] 3.6 g/dL Normal 3.4-5.0 [facility] Comment on above: Performed By: #### C MP, LIPID, TSH #### [facility] [address] [address] [address] Tanmay Carrera Albumin/Globulin [Mass ratio] 1.1 {ratio} Normal [facility] Comment on above: Performed By: #### C MP, LIPID, TSH #### [facility] [address] [address] [address] Tanmay Carrera ALP [Catalytic activity/Vol] 54 U/L Normal 46-116 [facility] Comment on above: Performed By: #### C MP, LIPID, TSH #### [facility] [address] [address] [address] Tanmay Carrera ALT [Catalytic activity/Vol] 17 U/L Normal 14-59 [facility] Comment on above: Performed By: #### C MP, LIPID, TSH #### [facility] [address] [address] [address] Tanmay Carrera Anion gap [Moles/Vol] 10.7 mmol/L Normal [facility] Comment on above: Performed By: #### C MP, LIPID, TSH #### [facility] [address] [address] [address] Tanmay Carrera AST [Catalytic activity/Vol] 14 U/L Critically low 15-37 [facility] Comment on above: Performed By: #### C MP, LIPID, TSH #### [facility] [address] [address] [address] Tanmay Carrera Bilirubin [Mass/Vol] 0.7 mg/dL Normal 0.2-1.0 [facility] Comment on above: Performed By: #### C MP, LIPID, TSH #### [facility] [address] [address] [address] Tanmay Carrera Calcium [Mass/Vol] 8.9 mg/dL Normal 8.5-10.1 [facility] Comment on above: Performed By: #### C MP, LIPID, TSH #### [facility] [address] [address] [address] Tanmay Carrera Chloride [Moles/Vol] 105 mmol/L Normal 98-107 [facility] Comment on above: Performed By: #### C MP, LIPID, TSH #### [facility] [address] [address] [address] Tanmay Carrera CO2 [Moles/Vol] 27.3 mmol/L Normal 21.0-32.0 [facility] Comment on above: Performed By: #### C MP, LIPID, TSH #### [facility] [address] [address] [address] Tanmay Carrera Creatinine [Mass/Vol] 0.77 mg/dL Normal 0.55-1.02 [facility] Comment on above: Performed By: #### C MP, LIPID, TSH #### [facility] [address] [address] [address] Tanmay Carrera EGFR-AF BAHRAINI >60 Normal >=60 [facility] Comment on above: Performed By: #### C MP, LIPID, TSH #### [facility] [address] [address] [address] Tanmay Carrera EGFR-NON AF BAHRAINI >60 Normal >=60 [facility] Comment on above: Performed By: #### C MP, LIPID, TSH #### [facility] [address] [address] [address] Tanmay Carrera Globulin (S) [Mass/Vol] 3.4 g/dL Normal [facility] Comment on above: Performed By: #### C MP, LIPID, TSH #### [facility] [address] [address] [address] Tanmay Carrera Glucose [Mass/Vol] 90 mg/dL Normal 74-106 [facility] Comment on above: Performed By: #### C MP, LIPID, TSH #### [facility] [address] [address] [address] Tanmay Carrera Potassium [Moles/Vol] 4.0 mmol/L Normal 3.5-5.1 [facility] Comment on above: Performed By: #### C MP, LIPID, TSH #### [facility] [address] [address] [address] Tanmay Carrera Protein [Mass/Vol] 7.0 g/dL Normal 6.4-8.2 [facility] Comment on above: Performed By: #### C MP, LIPID, TSH #### [facility] [address] [place], [place] [address] Dr. Tanmay Carrera Sodium [Moles/Vol] 139 mmol/L Normal 136-145 [facility] Comment on above: Performed By: #### C MP, LIPID, TSH #### [facility] [address] [address] [address] Tanmay Carrera Urea nitrogen [Mass/Vol] 11.0 mg/dL Normal 7.0-18.0 [facility] Comment on above: Performed By: #### C MP, LIPID, TSH #### [facility] [address] [address] [address] Tanmay Carrera Urea nitrogen/Creatinine [Mass ratio] 14.3 mg/mg Normal [facility] Comment on above: Performed By: #### C MP, LIPID, TSH #### [facility] [address] [id number] Tanmay Carrera TSHon 10-19-2021 TSH 1.545 uIU/mL Normal 0.358-3.740 [facility] Comment on above: Performed By: #### C MP, LIPID, TSH ####[facility] [address] [place], [place] [address]Dr. Tanmay Carrera ASYMPTOMATIC COVID-19 ANTIGE Non 10-09-2021 EUA Statement SEE BELOW Normal [facility] Comment on above: Result Comment: This test has not been FDA cleared or approved, but has been authorized by the FDA under an Emergency Use Authorization (EUA) for use by authorized laboratories certified under CLIA that meet the requirements to perform moderate or high complexity testing. This test has been authorized only for the detection of proteins from SARS-CoV-2, not for any other viruses or pathogens. The emergency use of this test is authorized for the duration of the declaration that circumstances exist justifying the authorization of emergency use of in vitro diagnostic tests for detection and/or diagnosis of Covid-19 under section 564(b)(1) of the Act, 21 U.S.C. 360bbb-3(b)(1), unless the declaration is terminated or authorization is revoked sooner. Performed By: #### C VDAGA ####[facility] [address] [place], [place] [address]Kr. Tanmay Carrera SARS-CoV-2 (COVID-19) RNA CIRILO+probe Ql (Unsp spec) Negative Normal NEGATIVE [facility] Comment on above: Result Comment: Nega tive results are presumptive. They do not preclude infection and should not be used as the sole basis for treatment decisions. Additional confirmatory testing by a molecular method should be considered. Performed By: #### C VDAGA ####[facility] [address] [place], [place] [address]Ht. Tanmay Carrera Covid[facility]19 PCR ([facility]on SARS-CoV-2 (COVID-19) RNA CIRILO+probe Ql (Unsp spec) Detected Critically abnormal NOT DETECTED [facility] Comment on above: Result Comment: This test is not yet approved or cleared by the [place] FDA. When there are no FDA-approved or cleared tests available, and other criteria are met, FDA can make tests available under an emergency access mechanism called an Emergency Use Authorization (EUA). The EUA for this test is supported by the [place] of Health and Human Service's declaration that circumstances exist to justify the emergency use of in vitro diagnostics for the detection and/or diagnosis of the virus that causes COVID-19. This EUA will remain in effect for the duration of the COVID-19 declaration justifying emergency of IVDs, unless it is terminated or revoked by the FDA (after which the test may no longer be used). Performed By: #### C VDTBH ####[facility] [address] [place], [place] [address]Kn. Tanmay Carrera Vital Signs Date Time Vital Sign Value Performing Clinician Faci lity 07-16-2023 14:57-0400 Blood Pressure Location Ez HERNANDEZ [facility] 07-16-2023 14:57-0400 Body temperature 98.06 [degF] Ez HERNANDEZ [facility] 07-16-2023 14:57-0400 Diastolic blood pressure 68 mm[Hg] Ez HERNANDEZ [facility] 07-16-2023 14:57-0400 Heart rate 87 /min Ez KAPLE [facility] 07-16-2023 14:57-0400 Respiratory rate 18 /min Ez KAPLE [facility] 07-16-2023 14:57-0400 SaO2% (BldA) [Mass fraction] 98 % Ez KAPLE [facility] 07-16-2023 14:57-0400 Systolic blood pressure 118 mm[Hg] Ez KAPLE [facility] 01-08-2023 09:59-0500 Blood Pressure Location Ez KAPLE [facility] 01-08-2023 09:59-0500 Body temperature 97.88 [degF] Ez KAPLE [facility] 01-08-2023 09:59-0500 Diastolic blood pressure 70 mm[Hg] Ez KAPLE [facility] 01-08-2023 09:59-0500 Heart rate 83 /min Ez KAPLE [facility] 01-08-2023 09:59-0500 Respiratory rate 18 /min Ez KAPLE [facility] 01-08-2023 09:59-0500 SaO2% (BldA) [Mass fraction] 98 % Ez KAPLE [facility] 01-08-2023 09:59-0500 Systolic blood pressure 114 mm[Hg] Ez KAPLE [facility] 01-30-2022 13:20-0500 Blood Pressure Location Ez KAPLE [facility] 01-30-2022 13:20-0500 Body temperature 97.7 [degF] Ez KAPLE [facility] 01-30-2022 13:20-0500 Diastolic blood pressure 70 mm[Hg] Ez KAPLE [facility] 01-30-2022 13:20-0500 Heart rate 73 /min Ez KAPLE [facility] 01-30-2022 13:20-0500 Respiratory rate 16 /min Ez KAPLE [facility] 01-30-2022 13:20-0500 SaO2% (BldA) [Mass fraction] 96 % Ez KAPLE [facility] 01-30-2022 13:20-0500 Systolic blood pressure 118 mm[Hg] Ez KAPLE [facility] 07-26-2021 07:54-0400 Blood Pressure Location Ez KAPLE [facility] 07-26-2021 07:54-0400 Body temperature 97.88 [degF] Ez KAPLE [facility] 07-26-2021 07:54-0400 Diastolic blood pressure 72 mm[Hg] Ez KAPLE [facility] 07-26-2021 07:54-0400 Heart rate 83 /min Ez KAPLE [facility] 07-26-2021 07:54-0400 Respiratory rate 16 /min Ez KAPLE [facility] 07-26-2021 07:54-0400 SaO2% (BldA) [Mass fraction] 99 % Ez LIANGSUGAR [facility] 07-26-2021 07:54-0400 Systolic blood pressure 118 mm[Hg] Ez HERNANDEZ [facility] Encounters Encounter Date Encounter Type Care Provider Facility Start: 07-21-2024 ambulatory Ez HERNANDEZ Facility: [facility] Start: 07-16-2023 End: 07-17-2023 ambulatory Ez HERNANDEZ Facility:[facility] Start: 07-16-2023 End: 07-16-2023 Patient encounter procedure Ez HERNANDEZ [facility] Start: 01-08-2023 End: 01-09-2023 ambulatory Ez HERNANDEZ Facility:[facility] Start: 01-08-2023 End: 01-08-2023 Patient encounter procedure Ez HERNANDEZ [facility] Start: 01-08-2023 End: 01-08-2023 Well adult monitoring check done Ez HERNANDEZ [facility] Start: 10-17-2022 End: 10-18-2022 ambulatory Jordan Smith Facility:[facility] Start: 10-17-2022 End: 10-17-2022 Lab Drop off Jordan Smith [facility] Start: 07-26-[address] WILLEM MADDOX Facilit y:[facility] Start: 07-12-2022 End: 07-13-[address] WILLEM MADDOX Facility:[facility] Start: 07-11-2022 End: 07-12-[address] WILLEM MADDOX Facility:[facility] Start: 07-05-2022 End: 07-06-[address] WILLEM MADDOX Facility:[facility] Start: 07-04-2022 End: 07-05-[address] WILLEM MADDOX Facility:[facility] Start: 06-28-2022 End: 06-29-[address] WILLEM MADDOX Facility:[facility] Start: 06-27-2022 End: 06-28-[address] WILLEM MADDOX Facility:[facility] Start: 06-21-2022 End: 06-22-[address] WILLEM MADDOX Facility:[facility] Start: 06-20-2022 End: 06-21-[address] WILLEM MADDOX Facility:[facility] Start: 06-13-2022 End: 06-14-[address] WILLEM MADDOX Facility:[facility] Start: 06-06-2022 End: 06-07-[address] WILLEM MADDOX Facility:[facility] Start: 05-30-2022 End: 05-31-[address] WILLEM MADDOX Facility:[facility] Start: 05-23-2022 End: 05-24-[address] WILLEM MADDOX Facility:[facility] Start: 05-16-2022 End: 05-17-[address] WILLEM MADDOX Facility:[facility] Start: 04-11-2022 End: 04-12-[address] WILLEM MADDOX Facility:[facility] Start: 03-11-[address] WILLEM MADDOX Facilit y:[facility] Start: 01-30-2022 End: 01-30-2022 Patient encounter procedure Ez HERNANDEZ [facility] Start: 01-30-2022 End: 01-30-2022 Well adult monitoring check done Ez HERNANDEZ [facility] Start: 11-22-2021 End: 03-03-[address] WILLEM MADDOX Facility:[facility] Start: 10-20-2021 Encounter for genera l adult medical examination without abnormal findings DR EZ HERNANDEZ [facility] Start: 10-19-2021 End: 10-20-[address] EZ HERNANDEZ Facility:[facility] Start: 10-19-2021 End: 10-20-2021 Encounter for general adult medical examination without abnormal findings DR EZ HERNANDEZ Facility:[facility] Start: 10-09-2021 End: 10-10-2021 ambulatory ELZBIETA LOZADA Facility:[facility] Start: 10-03-2021 End: 10-03-2021 ambulatory ELZBIETA LOZADA Facility:[facility] Start: 07-26-2021 End: 07-26-2021 Patient encounter procedure Ez HERNANDEZ [facility] Start: 07-26-2021 End: 07-26-2021 Well adult monitoring check done Ez HERNANDEZ [facility] Procedures Date Procedure Procedure Detail Performing Clinician Start: 03-05-2009 Structure of wisdom tooth (body structure) Ez HERNANDEZ Immunizations Immunization Date Immunization Notes Care Provider Fa jose angel 12-20-2022 influenza virus vacc ine, unspecified formulation Ez HERNANDEZ [facility] Comment on above: Result Comment: Got at work 12-14-2021 influenza virus vacc ine, unspecified formulation Ez HERNANDEZ [facility] Comment on above: Result Comment: [facility] 02-18-2021 SARS-CoV-2 (COVID-19 ) mRNA-1273 vaccine Ez HERNANDEZ [facility] 01-21-2021 SARS-CoV-2 (COVID-19 ) mRNA-1273 vaccine Ez HERNANDEZ [facility] 12-09-2018 influenza virus vacc ine, unspecified formulation Ez HERNANDEZ [facility] 12-28-2015 influenza virus vacc ine, unspecified formulation Ez KAPLE [facility] 12-29-2014 influenza virus vacc ine, unspecified formulation Ez KAPLE [facility] 12-23-2013 influenza virus vacc ine, unspecified formulation Ez KAPLE [facility] 12-28-2012 influenza virus vacc ine, unspecified formulation Ez KAPLE [facility] 12-31-2010 influenza virus vacc ine, unspecified formulation Ez KAPLE [facility] 12-31-2010 meningococcal ACWY vaccine, unspecified formulation Ez KAPLE [facility] 01-01-2010 influenza virus vacc ine, unspecified formulation Ez LIANGLE [facility] 01-02-2009 influenza virus vacc ine, H1N1, live Ez HERNANDEZ [facility] 01-02-2009 influenza virus vacc ine, unspecified formulation Ez KAPLE [facility] 01-04-2008 influenza virus vacc ine, unspecified formulation Ez KAPLE [facility] Payers Date Payer Category Payer Unknown [id number] 2019 Unknown [id number] 1993 Unknown [id number] 2.16.84 0.1.756261.3.579.2.593 1993 Unknown [id number] 2.16.84 0.1.131005.3.579.2.593 1993 Unknown [id number] 2.16.84 0.1.461410.3.579.2.593 1993 Unknown [id number] 2.16.84 0.1.874678.3.579.2.593 1993 Unknown [id number] 2.16.84 0.1.550766.3.579.2.593 1993 Unknown [id number] 2.16.84 0.1.692990.3.579.2.593 1993 Unknown [id number] 2.16.84 0.1.963572.3.579.2.593 1993 Unknown [id number] 2.16.84 0.1.968989.3.579.2.593 1993 Unknown [id number] 2.16.84 0.1.066255.3.579.2.593 1993 Unknown [id number] 2.16.84 0.1.900228.3.579.2.593 1993 Unknown [id number] 2.16.84 0.1.860253.3.579.2.593 1993 Unknown [id number] 2.16.84 0.1.032423.3.579.2.593 1993 Unknown [id number] 2.16.84 0.1.379491.3.579.2.593 1993 Unknown [id number] 2.16.84 0.1.855626.3.579.2.593 1993 Unknown [id number] 2.16.84 0.1.111501.3.579.2.593 1993 Unknown [id number] 2.16.84 0.1.689029.3.579.2.593 1993 Unknown [id number] 2.16.84 0.1.992372.3.579.2.593 1993 Unknown [id number] 2.16.84 0.1.771339.3.579.2.593 1993 Unknown [id number] 2.16.84 0.1.608170.3.579.2.593 1993 Unknown [id number] 2.16.84 0.1.762669.3.579.2.593 1993 Unknown [id number] 2.16.8 40.1.425119.3.579.2.727 1993 Unknown [id number] 2.16.8 40.1.635920.3.579.2.727 1993 Unknown [id number] 2.16.8 40.1.155867.3.579.2.727 1993 Unknown [id number] 2.16.8 40.1.108335.3.579.2.727 1959 Self-pay [id number] Social History Date Type Detail Facility Start: 04-22-2021 End: 07-16-2023 Tobacco smoking status Never smoked tobacco (finding) [facility] Tobacco smoking status Never [facility] Sex Assigned At Female [facility] Functional Status Date Assessment Result Facility 07-16-2023 Functional Status N/A [facility] 01-08-2023 Functional Status N/A [facility] 01-30-2022 Functional Status N/A [facility] Clinical Notes 07-26-2021 to 07-16-2023 LaboratoryLaboratory Note Date & Type Note Facility 07-16-2023 Hospital Discharg e instructions Patient Education 07/16/2023 16:03:55 Managing Anxiety, Adult Managing Anxiety, Adult After being diagnosed with anxiety, you may be relieved to know why you have felt or behaved a certain way. You may also feel overwhelmed about the treatment ahead and what it will mean for your life. With care and support, you can manage this condition. How to manage lifestyle changes Managing stress and anxiety Stress is your body's reaction to life changes and events, both good and bad. Most stress will last just a few hours, but stress can be ongoing and can lead to more than just stress. Although stress can play a major role in anxiety, it is not the same as anxiety. Stress is usually caused by something external, such as a deadline, test, or competition. Stress normally passes after the triggering event has ended. Anxiety is caused by something internal, such as imagining a terrible outcome or worrying that something will go wrong that will devastate you. Anxiety often does not go away even after the triggering event is over, and it can become long-term (chronic) worry. It is important to understand the differences between stress and anxiety and to manage your stress effectively so that it does not lead to an anxious response. Talk with your health care provider or a counselor to learn more about reducing anxiety and stress. He or she may suggest tension reduction techniques, such as: Music therapy. Spend time creating or listening to music that you enjoy and that inspires you. Mindfulness-based meditation. Practice being aware of your normal breaths while not trying to control your breathing. It can be done while sitting or walking. Centering prayer. This involves focusing on a word, phrase, or sacred image that means something to you and brings you peace. Deep breathing. To do this, expand your stomach and inhale slowly through your nose. Hold your breath for 3 5 seconds. Then exhale slowly, letting your stomach muscles relax. Self-talk. Learn to notice and identify thought patterns that lead to anxiety reactions and change those patterns to thoughts that feel peaceful. Muscle relaxation. Taking time to tense muscles and then relax them. Choose a tension reduction technique that fits your lifestyle and personality. These techniques take time and practice. Set aside 5 15 minutes a day to do them. Therapists can offer counseling and training in these techniques. The training to help with anxiety may be covered by some insurance plans. Other things you can do to manage stress and anxiety include: Keeping a stress diary. This can help you learn what triggers your reaction and then learn ways to manage your response. Thinking about how you react to certain situations. You may not be able to control everything, but you can control your response. Making time for activities that help you relax and not feeling guilty about spending your time in this way. Doing visual imagery. This involves imagining or creating mental pictures to help you relax. Practicing yoga. Through yoga poses, you can lower tension and promote relaxation. Medicines Medicines can help ease symptoms. Medicines for anxiety include: Antidepressant medicines. These are usually prescribed for long-term daily control. Anti-anxiety medicines. These may be added in severe cases, especially when panic attacks occur. Medicines will be prescribed by a health care provider. When used together, medicines, psychotherapy, and tension reduction techniques may be the most effective treatment. Relationships Relationships can play a big part in helping you recover. Try to spend more time connecting with trusted friends and family members. Consider going to couples counseling if you have a partner, taking family education classes, or going to family therapy. Therapy can help you and others better understand your condition. How to recognize changes in your anxiety Everyone responds differently to treatment for anxiety. Recovery from anxiety happens when symptoms decrease and stop interfering with your daily activities at home or work. This may mean that you will start to: Have better concentration and focus. Worry will interfere less in your daily thinking. Sleep better. Be less irritable. Have more energy. Have improved memory. It is also important to recognize when your condition is getting worse. Contact your health care provider if your symptoms interfere with home or work and you feel like your condition is not improving. Follow these instructions at home: Activity Exercise. Adults should do the following: ?Exercise for at least 150 minutes each week. The exercise should increase your heart rate and make you sweat (moderate-intensity exercise). ?Strengthening exercises at least twice a week. Get the right amount and quality of sleep. Most adults need 7 9 hours of sleep each night. Lifestyle Eat a healthy diet that includes plenty of vegetables, fruits, whole grains, low-fat dairy products, and lean protein. ?Do not eat a lot of foods that are high in fats, added sugars, or salt (sodium). Make choices that simplify your life. Do not use any products that contain nicotine or tobacco. These products include cigarettes, chewing tobacco, and vaping devices, such as e-cigarettes. If you need help quitting, ask your health care provider. Avoid caffeine, alcohol, and certain pvpp-qbc-wbncaep cold medicines. These may make you feel worse. Ask your pharmacist which medicines to avoid. General instructions Take frqc-ntm-ppbjhvv and prescription medicines only as told by your health care provider. Keep all follow-up visits. This is important. Where to find support You can get help and support from these sources: Self-help groups. Online and community organizations. A trusted spiritual leader. Couples counseling. Family education classes. Family therapy. Where to find more information You may find that joining a support group helps you deal with your anxiety. The following sources can help you locate counselors or support groups near you: Mental Health [place]: www.mentalhealthamerica.net Anxiety and Depression Association of [place] (ADAA): www.adaa.org National [place] on Mental Illness ([place]): www.joaquín.org Contact a health care provider if: You have a hard time staying focused or finishing daily tasks. You spend many hours a day feeling worried about everyday life. You become exhausted by worry. You start to have headaches or frequently feel tense. You develop chronic nausea or diarrhea. Get help right away if: You have a racing heart and shortness of breath. You have thoughts of hurting yourself or others. If you ever feel like you may hurt yourself or others, or have thoughts about taking your own life, get help right away. Go to your nearest emergency department or: Call your local emergency services (696 in the [place] Call a suicide crisis helpline, such as the National Suicide Prevention Lifeline at or 421 in the [place] This is open 24 hours a day in the [place] Text the Crisis Text Line at 970091 (in the [place] Summary Taking steps to learn and use tension reduction techniques can help calm you and help prevent triggering an anxiety reaction. When used together, medicines, psychotherapy, and tension reduction techniques may be the most effective treatment. Family, friends, and partners can play a big part in supporting you. This information is not intended to replace advice given to you by your health care provider. Make sure you discuss any questions you have with your health care provider. Document Revised: 09/14/2021 Document Reviewed: 06/12/2021 [employer] Patient Education 2022 [employer] 07/16/2023 16:02:51 Managing Anxiety, Adult Managing Anxiety, Adult After being diagnosed with anxiety, you may be relieved to know why you have felt or behaved a certain way. You may also feel overwhelmed about the treatment ahead and what it will mean for your life. With care and support, you can manage this condition. How to manage lifestyle changes Managing stress and anxiety Stress is your body's reaction to life changes and events, both good and bad. Most stress will last just a few hours, but stress can be ongoing and can lead to more than just stress. Although stress can play a major role in anxiety, it is not the same as anxiety. Stress is usually caused by something external, such as a deadline, test, or competition. Stress normally passes after the triggering event has ended. Anxiety is caused by something internal, such as imagining a terrible outcome or worrying that something will go wrong that will devastate you. Anxiety often does not go away even after the triggering event is over, and it can become long-term (chronic) worry. It is important to understand the differences between stress and anxiety and to manage your stress effectively so that it does not lead to an anxious response. Talk with your health care provider or a counselor to learn more about reducing anxiety and stress. He or she may suggest tension reduction techniques, such as: Music therapy. Spend time creating or listening to music that you enjoy and that inspires you. Mindfulness-based meditation. Practice being aware of your normal breaths while not trying to control your breathing. It can be done while sitting or walking. Centering prayer. This involves focusing on a word, phrase, or sacred image that means something to you and brings you peace. Deep breathing. To do this, expand your stomach and inhale slowly through your nose. Hold your breath for 3 5 seconds. Then exhale slowly, letting your stomach muscles relax. Self-talk. Learn to notice and identify thought patterns that lead to anxiety reactions and change those patterns to thoughts that feel peaceful. Muscle relaxation. Taking time to tense muscles and then relax them. Choose a tension reduction technique that fits your lifestyle and personality. These techniques take time and practice. Set aside 5 15 minutes a day to do them. Therapists can offer counseling and training in these techniques. The training to help with anxiety may be covered by some insurance plans. Other things you can do to manage stress and anxiety include: Keeping a stress diary. This can help you learn what triggers your reaction and then learn ways to manage your response. Thinking about how you react to certain situations. You may not be able to control everything, but you can control your response. Making time for activities that help you relax and not feeling guilty about spending your time in this way. Doing visual imagery. This involves imagining or creating mental pictures to help you relax. Practicing yoga. Through yoga poses, you can lower tension and promote relaxation. Medicines Medicines can help ease symptoms. Medicines for anxiety include: Antidepressant medicines. These are usually prescribed for long-term daily control. Anti-anxiety medicines. These may be added in severe cases, especially when panic attacks occur. Medicines will be prescribed by a health care provider. When used together, medicines, psychotherapy, and tension reduction techniques may be the most effective treatment. Relationships Relationships can play a big part in helping you recover. Try to spend more time connecting with trusted friends and family members. Consider going to couples counseling if you have a partner, taking family education classes, or going to family therapy. Therapy can help you and others better understand your condition. How to recognize changes in your anxiety Everyone responds differently to treatment for anxiety. Recovery from anxiety happens when symptoms decrease and stop interfering with your daily activities at home or work. This may mean that you will start to: Have better concentration and focus. Worry will interfere less in your daily thinking. Sleep better. Be less irritable. Have more energy. Have improved memory. It is also important to recognize when your condition is getting worse. Contact your health care provider if your symptoms interfere with home or work and you feel like your condition is not improving. Follow these instructions at home: Activity Exercise. Adults should do the following: ?Exercise for at least 150 minutes each week. The exercise should increase your heart rate and make you sweat (moderate-intensity exercise). ?Strengthening exercises at least twice a week. Get the right amount and quality of sleep. Most adults need 7 9 hours of sleep each night. Lifestyle Eat a healthy diet that includes plenty of vegetables, fruits, whole grains, low-fat dairy products, and lean protein. ?Do not eat a lot of foods that are high in fats, added sugars, or salt (sodium). Make choices that simplify your life. Do not use any products that contain nicotine or tobacco. These products include cigarettes, chewing tobacco, and vaping devices, such as e-cigarettes. If you need help quitting, ask your health care provider. Avoid caffeine, alcohol, and certain ytyh-zod-hckioej cold medicines. These may make you feel worse. Ask your pharmacist which medicines to avoid. General instructions Take woqk-mfv-smbyucx and prescription medicines only as told by your health care provider. Keep all follow-up visits. This is important. Where to find support You can get help and support from these sources: Self-help groups. Online and community organizations. A trusted spiritual leader. Couples counseling. Family education classes. Family therapy. Where to find more information You may find that joining a support group helps you deal with your anxiety. The following sources can help you locate counselors or support groups near you: Mental Health [place]: www.mentalhealthamerica.net Anxiety and Depression Association of [place] (ADAA): www.adaa.org National [place] on Mental Illness ([place]): www.joaquín.org Contact a health care provider if: You have a hard time staying focused or finishing daily tasks. You spend many hours a day feeling worried about everyday life. You become exhausted by worry. You start to have headaches or frequently feel tense. You develop chronic nausea or diarrhea. Get help right away if: You have a racing heart and shortness of breath. You have thoughts of hurting yourself or others. If you ever feel like you may hurt yourself or others, or have thoughts about taking your own life, get help right away. Go to your nearest emergency department or: Call your local emergency services (911 in the [place] Call a suicide crisis helpline, such as the National Suicide Prevention Lifeline at or 535 in the [place] This is open 24 hours a day in the [place] Text the Crisis Text Line at 858913 (in the [place] Summary Taking steps to learn and use tension reduction techniques can help calm you and help prevent triggering an anxiety reaction. When used together, medicines, psychotherapy, and tension reduction techniques may be the most effective treatment. Family, friends, and partners can play a big part in supporting you. This information is not intended to replace advice given to you by your health care provider. Make sure you discuss any questions you have with your health care provider. Document Revised: 09/14/2021 Document Reviewed: 06/12/2021 Else[employer] Patient Education 2022 [employer]. Follow Up Care 01/08/2023 10:33:32 With:DAVID QUIROS FAAFP, Ez Shelton, NICK, PED Address: [place] [address]- When:Within 1 Year(s) [facility] 01-08-2023 Hospital Discharg e instructions Patient Education 01/08/2023 10:22:39 Major Depressive Disorder, Adult, Fgyx-jq-Oooi Major Depressive Disorder, Adult Major depressive disorder is a mental health condition. This disorder affects feelings. It can also affect the body. Symptoms of this condition last most of the day, almost every day, for 2 weeks. This disorder can affect: Relationships. Daily activities, such as work and school. Activities that you normally like to do. What are the causes? The cause of this condition is not known. The disorder is likely caused by a mix of things, including: Your personality, such as being a shy person. Your behavior, or how you act toward others. Your thoughts and feelings. Too much alcohol or drugs. How you react to stress. Health and mental problems that you have had for a long time. Things that hurt you in the past (trauma). Big changes in your life, such as divorce. What increases the risk? The following factors may make you more likely to develop this condition: Having family members with depression. Being a woman. Problems in the family. Low levels of some brain chemicals. Things that caused you pain as a child, especially if you lost a parent or were abused. A lot of stress in your life, such as from: ?Living without basic needs of life, such as food and custodial. ?Being treated poorly because of race, sex, or jew (discrimination). Health and mental problems that you have had for a long time. What are the signs or symptoms? The main symptoms of this condition are: Being sad all the time. Being grouchy all the time. Loss of interest in things and activities. Other symptoms include: Sleeping too much or too little. Eating too much or too little. Gaining or losing weight, without knowing why. Feeling tired or having low energy. Being restless and weak. Feeling hopeless, worthless, or guilty. Trouble thinking clearly or making decisions. Thoughts of hurting yourself or others, or thoughts of ending your life. Spending a lot of time alone. Inability to complete common tasks of daily life. If you have very bad MDD, you may: Believe things that are not true. Hear, see, taste, or feel things that are not there. Have mild depression that lasts for at least 2 years. Feel very sad and hopeless. Have trouble speaking or moving. How is this treated? This condition may be treated with: Talk therapy. This teaches you to know bad thoughts, feelings, and actions and how to change them. ?This can also help you to communicate with others. ?This can be done with members of your family. Medicines. These can be used to treat worry (anxiety), depression, or low levels of chemicals in the brain. Lifestyle changes. You may need to: ?Limit alcohol use. ?Limit drug use. ?Get regular exercise. ?Get plenty of sleep. ?Make healthy eating choices. ?Spend more time outdoors. Brain stimulation. This treatment excites the brain. This is done when symptoms are very bad or have not gotten better with other treatments. Follow these instructions at home: Activity Get regular exercise as told. Spend time outdoors as told. Make time to do the things you enjoy. Find ways to deal with stress. Try to: ?Meditate. ?Do deep breathing. ?Spend time in nature. ?Keep a journal. Return to your normal activities as told by your doctor. Ask your doctor what activities are safe for you. Alcohol and drug use If you drink alcohol: ?Limit how much you use to: ?0 1 drink a day for women. ?0 2 drinks a day for men. ?Be aware of how much alcohol is in your drink. In the [place] one drink equals one 12 oz bottle of beer (355 mL), one 5 oz glass of wine (148 mL), or one 1 oz glass of hard liquor (44 mL). Talk to your doctor about: ?Alcohol use. Alcohol can affect some medicines. ?Any drug use. General instructions Take xlpn-xlv-rnwlkfx and prescription medicines and herbal preparations only as told by your doctor. Eat a healthy diet. Get a lot of sleep. Think about joining a support group. Your doctor may be able to suggest one. Keep all follow-up visits as told by your doctor. This is important. Where to find more information: National [place] on Mental Illness: www.joaquín.org [place] National [place] of Mental Health: www.nimh.nih.gov [place] Psychiatric Association: www.psychiatry.org/patients-fa milies/ Contact a doctor if: Your symptoms get worse. You get new symptoms. Get help right away if: You hurt yourself. You have serious thoughts about hurting yourself or others. You see, hear, taste, smell, or feel things that are not there. If you ever feel like you may hurt yourself or others, or have thoughts about taking your own life, get help right away. Go to your nearest emergency department or: Call your local emergency services (850 in the [place] Call a suicide crisis helpline, such as the National Suicide Prevention Lifeline at or 147 in the [place] This is open 24 hours a day in the [place] Text the Crisis Text Line at 649869 (in the [place] Summary Major depressive disorder is a mental health condition. This disorder affects feelings. Symptoms of this condition last most of the day, almost every day, for 2 weeks. The symptoms of this disorder can cause problems with relationships and with daily activities. There are treatments and support for people who get this disorder. You may need more than one type of treatment. Get help right away if you have serious thoughts about hurting yourself or others. This information is not intended to replace advice given to you by your health care provider. Make sure you discuss any questions you have with your health care provider. Document Revised: 09/14/2021 Document Reviewed: 01/31/2020 Elsevier Patient Education 2022 [employer]. Follow Up Care 01/30/2022 14:19:46 With:DAVID QUIROS FAAFP, Ez Shelton, NICK, PED Address[place] [address]- When:Within 6 Month(s) [facility] 01-30-2022 Hospital Discharg e instructions Patient Education 01/30/2022 14:04:44 Budget-Friendly Healthy Eating Budget-Friendly Healthy Eating There are many ways to save money at the grocery store and continue to eat healthy. You can be successful if you: Plan meals according to your budget. Make a grocery list and only purchase food according to your grocery list. Prepare food yourself. What are tips for following this plan? Reading food labels Compare food labels between brand name foods and the store brand. Often the nutritional value is the same, but the store brand is lower cost. Look for products that do not have added sugar, fat, or salt (sodium). These often cost the same but are healthier for you. Products may be labeled as: ?Sugar-free. ?Nonfat. ?Low-fat. ?Sodium-free. ?Low-sodium. Look for lean ground beef labeled as at least 92% lean and 8% fat. Shopping Buy only the items on your grocery list and go only to the areas of the store that have the items on your list. Use coupons only for foods and brands you normally buy. Avoid buying items you wouldn't normally buy simply because they are on sale. Check online and in newspapers for weekly deals. Buy healthy items from the bulk bins when available, such as herbs, spices, flour, pasta, nuts, and dried fruit. Buy fruits and vegetables that are in season. Prices are usually lower on in-season produce. Look at the unit medrano on the medrano tag. Use it to compare different brands and sizes to find out which item is the best deal. Choose healthy items that are often low-cost, such as carrots, potatoes, apples, bananas, and oranges. Dried or canned beans are a low-cost protein source. Buy in bulk and freeze extra food. Items you can buy in bulk include meats, fish, poultry, frozen fruits, and frozen vegetables. Avoid buying netvk-qt-gfs foods, such as pre-cut fruits and vegetables and pre-made salads. If possible, shop around to discover where you can find the best prices. Consider other retailers such as dollar stores, larger wholesale stores, local fruit and vegetable stands, and [employer] markets. Do not shop when you are hungry. If you shop while hungry, it may be hard to stick to your list and budget. Resist impulse buying. Use your grocery list as your official plan for the week. Buy a variety of vegetables and fruits by purchasing fresh, frozen, and canned items. Look at the top and bottom shelves for deals. Foods at eye level (eye level of an adult or child) are usually more expensive. Be efficient with your time when shopping. The more time you spend at the store, the more money you are likely to spend. To save money when choosing more expensive foods like meats and dairy: ?Choose cheaper cuts of meat, such as bone-in chicken thighs and drumsticks instead of skinless and boneless chicken. When you are ready to prepare the chicken, you can remove the skin yourself to make it healthier. ?Choose lean meats like chicken or turkey instead of beef. ?Choose canned seafood, such as tuna, salmon, or sardines. ?Buy eggs as a low-cost source of protein. ?Buy dried beans and peas, such as lentils, split peas, or kidney beans instead of meats. Dried beans and peas are a good alternative source of protein. ?Buy the larger tubs of yogurt instead of individual-sized containers. Choose water instead of sodas and other sweetened beverages. Avoid buying chips, cookies, and other junk food. These items are usually expensive and not healthy. Cooking Make extra food and freeze the extras in meal-sized containers or in individual portions for fast meals and snacks. Pre-cook on days when you have extra time to prepare meals in advance. You can keep these meals in the fridge or freezer and reheat for a quick meal. When you come home from the grocery store, wash, peel, and cut fruits and vegetables so they are ready to use and eat. This will help reduce food waste. Meal planning Do not eat out or get fast food. Prepare food at home. Make a grocery list and make sure to bring it with you to the store. If you have a smart phone, you could use your phone to create your shopping list. Plan meals and snacks according to a grocery list and budget you create. Use leftovers in your meal plan for the week. Look for recipes where you can cook once and make enough food for two meals. Include budget-friendly meals like stews, casseroles, and stir-varela dishes. Try some meatless meals or try no cook meals like salads. Make sure that half your plate is filled with fruits or vegetables. Choose from fresh, frozen, or canned fruits and vegetables. If eating canned, remember to rinse them before eating. This will remove any excess salt added for packaging. Summary Eating healthy on a budget is possible if you plan your meals according to your budget, purchase according to your budget and grocery list, and prepare food yourself. Tips for buying more food on a limited budget include buying generic brands, using coupons only for foods you normally buy, and buying healthy items from the bulk bins when available. Tips for buying cheaper food to replace expensive food include choosing cheaper, lean cuts of meat, and buying dried beans and peas. This information is not intended to replace advice given to you by your health care provider. Make sure you discuss any questions you have with your health care provider. Document Released: 10/23/2014 Document Revised: 02/20/2018 Document Reviewed: 02/20/2018 [employer] Patient Education 2020 [employer]. Follow Up Care 07/26/2021 08:57:50 With:DAVID QUIROS FAAFP, Ez Shelton, NICK, PED Address: [facility] [address], [facility], [place] [address]- When:Within 6 Month(s) [facility] 07-26-2021 Hospital Discharg e instructions Patient Education 07/26/2021 08:54:13 Managing Anxiety, Adult Managing Anxiety, Adult After being diagnosed with an anxiety disorder, you may be relieved to know why you have felt or behaved a certain way. You may also feel overwhelmed about the treatment ahead and what it will mean for your life. With care and support, you can manage this condition and recover from it. How to manage lifestyle changes Managing stress and anxiety Stress is your body's reaction to life changes and events, both good and bad. Most stress will last just a few hours, but stress can be ongoing and can lead to more than just stress. Although stress can play a major role in anxiety, it is not the same as anxiety. Stress is usually caused by something external, such as a deadline, test, or competition. Stress normally passes after the triggering event has ended. Anxiety is caused by something internal, such as imagining a terrible outcome or worrying that something will go wrong that will devastate you. Anxiety often does not go away even after the triggering event is over, and it can become long-term (chronic) worry. It is important to understand the differences between stress and anxiety and to manage your stress effectively so that it does not lead to an anxious response. Talk with your health care provider or a counselor to learn more about reducing anxiety and stress. He or she may suggest tension reduction techniques, such as: Music therapy. This can include creating or listening to music that you enjoy and that inspires you. Mindfulness-based meditation. This involves being aware of your normal breaths while not trying to control your breathing. It can be done while sitting or walking. Centering prayer. This involves focusing on a word, phrase, or sacred image that means something to you and brings you peace. Deep breathing. To do this, expand your stomach and inhale slowly through your nose. Hold your breath for 3 5 seconds. Then exhale slowly, letting your stomach muscles relax. Self-talk. This involves identifying thought patterns that lead to anxiety reactions and changing those patterns. Muscle relaxation. This involves tensing muscles and then relaxing them. Choose a tension reduction technique that suits your lifestyle and personality. These techniques take time and practice. Set aside 5 15 minutes a day to do them. Therapists can offer counseling and training in these techniques. The training to help with anxiety may be covered by some insurance plans. Other things you can do to manage stress and anxiety include: Keeping a stress/anxiety diary. This can help you learn what triggers your reaction and then learn ways to manage your response. Thinking about how you react to certain situations. You may not be able to control everything, but you can control your response. Making time for activities that help you relax and not feeling guilty about spending your time in this way. Visual imagery and yoga can help you stay calm and relax. Medicines Medicines can help ease symptoms. Medicines for anxiety include: Anti-anxiety drugs. Antidepressants. Medicines are often used as a primary treatment for anxiety disorder. Medicines will be prescribed by a health care provider. When used together, medicines, psychotherapy, and tension reduction techniques may be the most effective treatment. Relationships Relationships can play a big part in helping you recover. Try to spend more time connecting with trusted friends and family members. Consider going to couples counseling, taking family education classes, or going to family therapy. Therapy can help you and others better understand your condition. How to recognize changes in your anxiety Everyone responds differently to treatment for anxiety. Recovery from anxiety happens when symptoms decrease and stop interfering with your daily activities at home or work. This may mean that you will start to: Have better concentration and focus. Worry will interfere less in your daily thinking. Sleep better. Be less irritable. Have more energy. Have improved memory. It is important to recognize when your condition is getting worse. Contact your health care provider if your symptoms interfere with home or work and you feel like your condition is not improving. Follow these instructions at home: Activity Exercise. Most adults should do the following: ?Exercise for at least 150 minutes each week. The exercise should increase your heart rate and make you sweat (moderate-intensity exercise). ?Strengthening exercises at least twice a week. Get the right amount and quality of sleep. Most adults need 7 9 hours of sleep each night. Lifestyle Eat a healthy diet that includes plenty of vegetables, fruits, whole grains, low-fat dairy products, and lean protein. Do not eat a lot of foods that are high in solid fats, added sugars, or salt. Make choices that simplify your life. Do not use any products that contain nicotine or tobacco, such as cigarettes, e-cigarettes, and chewing tobacco. If you need help quitting, ask your health care provider. Avoid caffeine, alcohol, and certain swdp-vmv-pwpnofo cold medicines. These may make you feel worse. Ask your pharmacist which medicines to avoid. General instructions Take tjta-omx-qjsufth and prescription medicines only as told by your health care provider. Keep all follow-up visits as told by your health care provider. This is important. Where to find support You can get help and support from these sources: Self-help groups. Online and community organizations. A trusted spiritual leader. Couples counseling. Family education classes. Family therapy. Where to find more information You may find that joining a support group helps you deal with your anxiety. The following sources can help you locate counselors or support groups near you: Mental Health [place]: www.mentalhealthamerica.net Anxiety and Depression Association of [place] (ADAA): www.adaa.org National [place] on Mental Illness ([place]): www.joaquín.org Contact a health care provider if you: Have a hard time staying focused or finishing daily tasks. Spend many hours a day feeling worried about everyday life. Become exhausted by worry. Start to have headaches, feel tense, or have nausea. Urinate more than normal. Have diarrhea. Get help right away if you have: A racing heart and shortness of breath. Thoughts of hurting yourself or others. If you ever feel like you may hurt yourself or others, or have thoughts about taking your own life, get help right away. You can go to your nearest emergency department or call: Your local emergency services (911 in the [place] A suicide crisis helpline, such as the National Suicide Prevention Lifeline at . This is open 24 hours a day. Summary Taking steps to learn and use tension reduction techniques can help calm you and help prevent triggering an anxiety reaction. When used together, medicines, psychotherapy, and tension reduction techniques may be the most effective treatment. Family, friends, and partners can play a big part in helping you recover from an anxiety disorder. This information is not intended to replace advice given to you by your health care provider. Make sure you discuss any questions you have with your health care provider. Document Released: 02/13/2017 Document Revised: 07/22/2019 Document Reviewed: 07/22/2019 [employer] Patient Education 2020 [employer]. Follow Up Care 07/25/2021 11:26:02 With:Ez HERNANDEZ DO, FAAFP, NICK, PED Address: [address] [place] [id number]- When:Within 6 Month(s) [facility] Evaluation + Plan note Future Appointments Appointment Date:01/30/2022 01:20:00 PM Scheduled Provider:Ez HERNANDEZ DO, FAAFP Location:[facility] Appointment Type:FM Open Diagnostic Tests PendingBasic Metabolic Panel 07/26/21CBC w/ Auto Diff 07/26/21Lipid Panel 07/26/21Hepatic Function Panel 07/26/21 Future Scheduled TestsBasic Metabolic Panel 07/26/21CBC w/ Auto Diff 07/26/21 [facility] Evaluation + Plan note Future Appointments Appointment Date:01/29/2023 12:20:00 PM Scheduled Provider:Ez HERNANDEZ DO, FAAFP Location:[facility] Appointment Type:FM Preventative Visit Future Scheduled TestsBasic Metabolic Panel 07/26/21CBC w/ Auto Diff 07/26/21 [facility] Evaluation + Plan note Future Appointments Appointment Date:01/29/2023 12:20:00 PM Scheduled Provider:Ez HERNANDEZ DO, FAAFP Location:[facility] Appointment Type:FM Preventative Visit Diagnostic Tests PendingPAP [id number] 10/17/22 [facility] Evaluation + Plan note Future Appointments Appointment Date:07/10/2023 02:40:00 PM Scheduled Provider:Ez HERNANDEZ DO, FAAFP Location:[facility] Appointment Type:FM Open [facility] Evaluation + Plan note Future Appointments Appointment Date:07/21/2024 09:40:00 AM Scheduled Provider:Ez HERNANDEZ DO, FAAFP Location:[facility] Appointment Type:FM Preventative Visit [facility] Hospital course Narrative No data available for this section [facility] Hospital Discharge instructions No data available for this section [facility] Progress note No data available for this section [facility] Summary Purpose Family History No Family History Records Found No data available for this section No data available for this section No Family History Records Found Advance Directives No Advanced Directives Records FoundNo Advanced Directives Records Found Additional Source Comments Patient Care team informatio n (unrecognized section and content) Personnel Name: Ez HERNANDEZ DO, FAAFP Address: Address: [address] [place] [address] Personnel Name: Ez HERNANDEZ DO, FAAFP Address: Address: [address] [place] [address] Personnel Name: Ez HERNANDEZ DO, FAAFP Address: Address: [address], [place] [address]- Personnel Name: Ez HERNANDEZ DO, FAAFP Address: Address: [address] [place], [place] [address]- INFORMATION SOURCE (unrecogn ized section and content) DATE CREATED AUTHOR 07/20/2022 [facility] DATE CREATED AUTHOR AUTHOR'S ORGANIZ ATION 07/17/2023 [facility] FOR RECORDS PERTAINING TO PATIENTS WHO ARE OR HAVE BEEN ENROLLED IN A CHEMICAL DEPENDENCY/SUBSTANCEABUSE PROGRAM, SOME INFORMATION MAY BE OMITTED. This clinical summary was aggregated from multiple sources. Caution should be exercised in using it in the provision of clinical care. This summary normalizes information from multiple sources, and as a consequence, information in this document may materially change the coding, format and clinical context of patient data. In addition, data may be omitted in some cases. CLINICAL DECISIONS SHOULD BE BASED ON THE PRIMARY CLINICAL RECORDS. [employer] provides no warranty or guarantee of the accuracy or completeness of information in this document.
[2024-02-22 07:02] LABS: Basophils Percent Auto 0.8 % (0.2-2.0); Eosinophils Absolute Auto 0.1 10^3/uL (0.0-0.7); Eosinophils Percent Auto 1.2 % (0.9-7.0); Hematocrit 36.4 % (36.0-48.0); Immature Granulocytes Abs Auto 0.01 10^3/uL (0.00-0.03); Immature Granulocytes Pct Auto 0.2 % (0.0-0.5); Lymphocytes Absolute Auto 2.1 10^3/uL (1.2-3.8); Lymphocytes Percent Auto 41.7 % (20.5-60.0); Mean Corpuscular Hemoglobin 30.4 pg (26.7-34.0); Mean Corpuscular Volume 92.2 fL (81.0-99.0); Mean Platelet Volume 10.6 fL (9.5-13.5); Monocytes Absolute Auto 0.5 10^3/uL (0.3-0.8); Monocytes Percent Auto 9.4 % (1.7-12.0); Neutrophils Absolute Auto 2.4 10^3/uL (1.4-6.5); Neutrophils Percent Auto 46.7 % (43.0-75.0); Platelet Count 258 10^3/uL (150-450); Red Blood Count 3.95 10^6/uL (4.20-5.40); Red Cell Distribution Width 12.2 % (11.0-15.0); White Blood Count 5.1 10^3/uL (4.0-11.0)
[2024-02-22 07:25] LABS: Estimated Average Glucose 103 mg/dL; Glycohemoglobin A1C 5.2 % (4.5-6.2)
[2024-02-22 08:16] LABS: Alanine Aminotransferase 15 U/L (14-59); Albumin Level 3.2 g/dL (3.4-5.0); Alkaline Phosphatase 62 U/L (46-116); Anion Gap 15.1; Aspartate Amino Transferase 15 U/L (15-37); BUN Creatinine Ratio 10.6; Bilirubin Total 0.5 mg/dL (0.2-1.0); Calcium 8.9 mg/dL (8.5-10.1); Carbon Dioxide 26.2 mmol/L (21.0-32.0); Chloride 105 mmol/L (98-107); Cholesterol 170 mg/dL (<=200); Estimated GFR (African America >60 (>=60 mL/min/1.73m^2); Estimated GFR (Non-African Ame >60 (>=60 mL/min/1.73m^2); Globulin 3.3 g/dL; Glucose 84 mg/dL (74-106); HDL Cholesterol 57 mg/dL (40-60); LDL Cholesterol Calculated 105.4 mg/dL; Potassium 4.3 mmol/L (3.5-5.1); Sodium 142 mmol/L (136-145); Thyroid Stimulating Hormone 1.556 uIU/mL (0.358-3.740); Total Protein 6.5 g/dL (6.4-8.2); Triglycerides 38 mg/dL (<=150); VLDL CHOLESTEROL 7.6 mg/dL
== END 2024-02-22 06:45 | disposition home or self-care (01) ==
LOC: LAB 06:44
PROVIDERS: PCP Radiology Diagnostic Radiology; Visit Provider Obstetrics & Gynecology
DX: Z00.00 Encounter for general adult medical examination without abnormal findings (principal)
CPT/HCPCS: 36415; 80053; 80061; 83036; 84443; 85025